=== PATIENT | female | born 1995 | race African-American/Black ===

== ENCOUNTER 2019-03-10 13:04 | Inpatient (IN) | payer OTHER, SELFPAY ==
[~2019-03-10] VITALS: Ht 180.3 cm; Wt 66.5 kg
[~2019-03-10 13:04] MED LIST: ACET500T15 PO; BACT800T5 PO; CEPH500C PO; CIPR-249 PO; FLAG500T PO; HYDR1CRE TOP; Implanon INJ; MACR100C43 PO; MYLICON PO; NO HOME MEDS; NYST100029 TOP; NYST1POW9 TOP; ROXI1TAB2 PO; TYLE325T5 PO
[2019-03-10 14:21] LABS: HEMATOCRIT 45.1 % (36.0-47.0); HEMOGLOBIN 14.5 g/dl (12.0-15.5); MEAN CORPUSCULAR HEMOGLOBIN 28.2 pg (27.0-33.0); MEAN CORPUSCULAR HGB CONC 32.2 g/dl (32.0-36.5); MEAN CORPUSCULAR VOLUME 87.6 fl (80.0-96.0); PLATELET COUNT, AUTOMATED 395 10^3/uL (150-450); RED BLOOD COUNT 5.15 10^6/uL (4.00-5.40); WHITE BLOOD COUNT 20.2 10^3/uL (4.0-10.0)
[2019-03-10 15:09] LABS: ACETAMINOPHEN LEVEL < 2.0 UG/ML (10.0-30.0); ALBUMIN 4.4 GM/DL (3.2-5.2); ALT/SGPT 27 U/L (12-78); BILIRUBIN,DIRECT 0.5 MG/DL (0.0-0.2); BILIRUBIN,TOTAL 0.9 MG/DL (0.2-1.0); BLOOD UREA NITROGEN 10 MG/DL (7-18); CALCIUM LEVEL 10.3 MG/DL (8.5-10.1); CARBON DIOXIDE LEVEL 26 MEQ/L (21-32); CHLORIDE LEVEL 105 MEQ/L (98-107); CREATININE FOR GFR 1.01 MG/DL (0.55-1.30); ETHYL ALCOHOL (ETHANOL) < 0.003 % (0.000-0.010); GLOMERULAR FILTRATION RATE > 60.0 (>60); GLUCOSE, FASTING 77 MG/DL (70-100); POTASSIUM SERUM 3.5 MEQ/L (3.5-5.1); SALICYLATE LEVEL < 1.7 MG/DL (5.0-30.0); SODIUM LEVEL 141 MEQ/L (136-145); TOTAL PROTEIN 8.6 GM/DL (6.4-8.2)
[2019-03-10] MEDS ORDERED: ALPRAZolam 0.5 MG TAB PO ONE (16:00)
[2019-03-10 16:09] LABS: HCG, SERUM QUALITATIVE NEGATIVE (NEGATIVE)
[2019-03-10] MEDS: diphenhydrAMINE 50 MG CAP PO ONE ×2 (17:30→21:27)
[2019-03-10 20:21] LABS: AMPHETAMINES LEVEL URINE NEGATIVE (NEGATIVE); BARBITURATES URINE NEGATIVE (NEGATIVE); BENZODIAZEPINES URINE POSITIVE (NEGATIVE); CANNABINOIDS URINE POSITIVE (NEGATIVE); COCAINE METABOLITE URINE NEGATIVE (NEGATIVE); METHADONE URINE NEGATIVE (NEGATIVE); OPIATES URINE NEGATIVE (NEGATIVE); PHENCYCLIDINE URINE NEGATIVE (NEGATIVE)
[2019-03-10] MEDS ORDERED: CIPROFLOXACIN 500 MG TAB PO ONE (20:45)
[2019-03-10] MEDS ORDERED: HALOPERIDOL 5 MG TAB PO STA (22:11)
[2019-03-10] MEDS ORDERED: LORazepam 1 MG TAB PO STA (22:11)
[2019-03-10] MEDS ORDERED: ZOLO50TA PO (22:14)
[2019-03-10] MEDS ORDERED: RISP0.5T3 PO (22:14)
[2019-03-10] MEDS ORDERED: VENTAER INH (22:14)
[2019-03-10] MEDS ORDERED: NEXP1IMP SC (22:14)
[2019-03-10] MEDS ORDERED: HYDR-3363 PO (22:14)
[2019-03-11 00:08] LABS: HEMATOCRIT 37.7 % (36.0-47.0); MEAN CORPUSCULAR HEMOGLOBIN 28.6 pg (27.0-33.0); MEAN CORPUSCULAR HGB CONC 32.6 g/dl (32.0-36.5); MEAN CORPUSCULAR VOLUME 87.7 fl (80.0-96.0); PLATELET COUNT, AUTOMATED 304 10^3/uL (150-450); WHITE BLOOD COUNT 10.6 10^3/uL (4.0-10.0)
[2019-03-11 00:11] LABS: HEMOGLOBIN 12.3 g/dl (12.0-15.5)
[2019-03-11] MEDS ORDERED: OLANZapine ORAL DISINTEGRATING TAB 5MG PO PRN (01:00)
[2019-03-11] MEDS ORDERED: ACETAMINOPHEN TAB 650MG DOSE (2X325MG) PO PRN (01:00)
[2019-03-11] MEDS ORDERED: MAALOX 30 ML SUSP *UDC PO PRN (01:00)
[2019-03-11] MEDS ORDERED: MOM 30ML SUSPENSION UDC PO PRN (01:00)
[2019-03-11] MEDS ORDERED: traZODone 50 MG TAB PO PRN (01:00)
[2019-03-11 03:11] VITALS: BP 101/62
[2019-03-11 06:39] VITALS: BP 109/72
[2019-03-11 07:13] LABS: HEMATOCRIT 38.9 % (36.0-47.0); HEMOGLOBIN 12.6 g/dl (12.0-15.5); MEAN CORPUSCULAR HEMOGLOBIN 28.6 pg (27.0-33.0); MEAN CORPUSCULAR HGB CONC 32.4 g/dl (32.0-36.5); MEAN CORPUSCULAR VOLUME 88.2 fl (80.0-96.0); PLATELET COUNT, AUTOMATED 311 10^3/uL (150-450); RED BLOOD COUNT 4.41 10^6/uL (4.00-5.40); WHITE BLOOD COUNT 9.5 10^3/uL (4.0-10.0)
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
[2019-03-11] MEDS ORDERED: PALIPERIDONE 3 MG ER TAB (INVEGA) PO SCH (09:00)
--- NOTE | 2019-03-11 13:06 | HPEPDOC ---
General Date of Admission Mar 11, 2019 at 00:54 Date of Service: Mar 11, 2019 Chief Complaint The patient is a 24-year-old female admitted with a reason for visit of Unspecified Psychotic D/O. Source: Patient History of Present Illness 24 year old pateint with asthma , migraines, depression, polysubstance abuse was admitted to [facility] for depression and unspecified psychotic disorder and i am seeing the patient for medical history and physical. She is sleepy this am and as per nurses has been sleeping all night and morning after polysubstance use prior to admission. She was easily arousable and cooperative. denied any complaints this morning. denied any headache,or sob, denied any dysuria. DOes say that her menstruation is very irregular and small in amounts. Home Medications Scheduled Etonogestrel (Nexplanon) 68 Mg Implant, 68 MG SC ASDIRECTED, (Reported) IMPLANTED IN 2018 Risperidone (Risperidone) 0.5 Mg Tablet, 0.5 MG PO QHS, (Reported) HAS NOT TAKEN IN 3 MONTHS Sertraline Hcl (Zoloft) 50 Mg Tablet, 100 MG PO DAILY, (Reported) HAS NOT TAKEN IN 3 MONTHS Scheduled PRN Albuterol Sulfate (Ventolin Hfa) 18 Gm Hfa.aer.ad, 2 PUFF INH QID PRN for SHORTNESS OF BREATH, (Reported) Hydroxyzine HCl (Hydroxyzine HCl) 25 Mg Tablet, 25 MG PO TID PRN for ANXIETY, (Reported) HAS NOT TAKEN IN 3 MONTHS Allergies Coded Allergies: diphenhydramine (Verified Adverse Reaction, Severe, panic attacks, 03/10/19) Past Medical History Medical History asthma migraines, biliary colic Family History Significant Family History: Cancer (grandfather), Diabetes (father) Social History * Smoker: Denies Alcohol: occationally Drugs: marijuana, other (bath salts, amphetamine) A-FIB/CHADSVASC A-FIB History Current/History of A-Fib/PAF?: No Review of Systems Constitutional: Denies: Chills, Fever, Night Sweats Eyes: Denies: Pain, Vision change ENT: Denies: Head Aches, Ear Pain, Dysphagia Skin: Denies: Rash, Lesions, Breakdown Pulmonary: Denies: Dyspnea, Cough Cardiovascular: Denies: Chest Pain, Palpitations, Orthopnea, Paroxysmal Noc. Dyspnea, Lt Headedness Gastrointestinal: Denies: Nausea, Vomiting, Abdominal Pain, Diarrhea Genitourinary: Denies: Dysuria, Frequency, Incontinence, Retention Hematologic: Denies: Bruising, Bleeding Excessively Musculoskeletal: Denies: Neck Pain, Back Pain, Joint Pain, Muscle Pain, Spasms Physical Examination General Exam: Positive: Alert, Cooperative, No Acute Distress Eye Exam: Positive: PERRLA, Conjunctiva & lids normal, EOMI; Negative: Sclera icteric ENT Exam: Positive: Atraumatic, Mucous membr. moist/pink, Pharynx Normal Neck Exam: Positive: Supple; Negative: JVD, thyromegaly Chest Exam: Positive: Clear to auscultation, Normal air movement Heart Exam: Positive: Rate Normal, Regular Rhythm, Normal S1, Normal S2; Negative: Murmurs, Rubs Abdomen Exam: Positive: Normal bowel sounds, Soft; Negative: Tenderness, Hepatospenomegaly Extremity Exam: Positive: Normal pulses; Negative: Clubbing, Cyanosis, Edema Vital Signs Vital Signs Date Time Temp Pulse Resp B/P (MAP) Pulse Ox O2 Delivery O2 Flow Rate FiO2 03/11/19 06:39 97.3 66 12 109/72 (84) Room Air 03/11/19 03:11 100 Laboratory Data Labs 24H Laboratory Tests 2 03/10/19 14:08: Nucleated Red Blood Cells % (auto) 0.0, Anion Gap 10, Glomerular Filtration Rate > 60.0, Calcium Level 10.3H, Total Bilirubin 0.9, Direct Bilirubin 0.5H, Aspartate Amino Transf (AST/SGOT) 33, Alanine Aminotransferase (ALT/SGPT) 27, Alkaline Phosphatase 89, Total Protein 8.6H, Albumin 4.4, Albumin/Globulin Ratio 1.05, Thyroid Stimulating Hormone (TSH) 2.150, Human Chorionic Gonadotropin, Qual NEGATIVE, Salicylates Level < 1.7L, Acetaminophen Level < 2.0L, Ethyl Alcohol Level < 0.003 03/10/19 19:36: Urine Color DK YELLOW, Urine Appearance CLOUDYH, Urine pH 6.0, Urine Specific [place] 1.024, Urine Protein 2+H, Urine Glucose (UA) NEGATIVE, Urine Ketones 1+H, Urine Blood 1+H, Urine Nitrite NEGATIVE, Urine Bilirubin 1+H, Urine Urobilinogen 4.0H, Urine Leukocyte Esterase 2+H, Urine WBC (Auto) 30H, Urine RBC (Auto) 1, Urine Hyaline Casts (Auto) 27, Urine Bacteria (Auto) 3+H, Urine Squamous Epithelial Cells 5, Urine Mucus (Auto) LARGE, Urine Sperm (Auto) , Urine Opiates Screen NEGATIVE, Urine Methadone Screen NEGATIVE, Urine Barbiturates Screen NEGATIVE, Urine Phencyclidine Screen NEGATIVE, Urine Amphetamines Screen NEGATIVE, Urine Benzodiazepines Screen POSITIVEH, Urine [place]ha eldon Metabolite Screen NEGATIVE, Urine Cannabinoids Screen POSITIVEH 03/10/19 23:48: Nucleated Red Blood Cells % (auto) 0.0 03/11/19 06:54: Total Creatine Kinase 353H 03/11/19 06:57: Nucleated Red Blood Cells % (auto) 0.0 CBC/BMP Laboratory Tests 03/10/19 14:08 03/10/19 23:48 03/11/19 06:57 Microbiology Microbiology 03/10/19 Urine Culture, Received Pending Assessment/Plan 24 year old patient with asthma , migraines, depression, polysubstance abuse was admitted to [facility] for depression and unspecified psychotic disorder and i am seeing the patient for medical history and physical. Dirty UA patient denies any complaints of dysuria follow up urine culture possibly asymptomatic bacturia. Leucocytosis this was probably related to stress demargination and mild dehydration No fever or chills of any symptom or sign of infection it is normal this am Hypercalcemia probably due to mild dehydration At present patient does not have any active medical issues so will sign off If needed please reconsult . Plan / VTE VTE Prophylaxis Ordered?: No (freely ambulatory) AKILAH MOORE MD Mar 11, 2019 13:06
[2019-03-11 18:00] VITALS: BP 131/86
[2019-03-11] MEDS ORDERED: SERTRALINE 100 MG TAB PO ONE (18:45)
[2019-03-11] MEDS ORDERED: ALBUTEROL 90 MCG/ACT 8GM HFA INHALER INH PRN (18:45)
[2019-03-11] MEDS: risperiDONE 0.5 MG TAB PO SCH (22:44)
[2019-03-12 07:32] VITALS: BP 122/71
[2019-03-12] MEDS: SERTRALINE 100 MG TAB PO SCH (08:42)
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
[2019-03-12] MEDS: CEFDINIR 300 MG CAP (OMNICEF) PO SCH ×2 (11:11→20:29)
[2019-03-12 18:00] VITALS: BP 123/77
[2019-03-12] MEDS: risperiDONE 0.5 MG TAB PO SCH (20:29)
[2019-03-13 06:25] VITALS: BP 126/62
[2019-03-13] MEDS: CEFDINIR 300 MG CAP (OMNICEF) PO SCH ×2 (08:06→20:05)
[2019-03-13] MEDS: SERTRALINE 100 MG TAB PO SCH (08:06)
[2019-03-13] MEDS: hydrOXYzine 25 MG TAB PO PRN ×2 (11:56→21:38)
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
[2019-03-13 15:22] VITALS: BP 127/65
[2019-03-13] MEDS: risperiDONE 0.5 MG TAB PO SCH (20:05)
[2019-03-14 06:31] VITALS: BP 105/54
[2019-03-14] MEDS: CEFDINIR 300 MG CAP (OMNICEF) PO SCH (07:57)
[2019-03-14] MEDS: SERTRALINE 100 MG TAB PO SCH (07:57)
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
[2019-03-14] MEDS ORDERED: RISP0.5T3 PO (10:23)
[2019-03-14] MEDS ORDERED: ZOLO50TA PO (10:23)
== END 2019-03-14 12:02 | disposition home or self-care (01) | DRG 751 ==
LOC: M ED 13:04 → M ED INP 03-11 00:54 → M PSY 03-11 02:34
PROVIDERS: ADMIT Psychiatry & Neurology Psychiatry; ATTEND Psychiatry & Neurology Addiction Medicine
DX: F29 Unspecified psychosis not due to a substance or known physiological condition (principal); F12.20 Cannabis dependence, uncomplicated; F17.210 Nicotine dependence, cigarettes, uncomplicated; F32.9 Major depressive disorder, single episode, unspecified; G43.909 Migraine, unspecified, not intractable, without status migrainosus; J45.909 Unspecified asthma, uncomplicated; F15.10 Other stimulant abuse, uncomplicated; F19.20 Other psychoactive substance dependence, uncomplicated; D72.829 Elevated white blood cell count, unspecified; E83.52 Hypercalcemia; Z60.8 Other problems related to social environment; Z88.8 Allergy status to other drugs, medicaments and biological substances; Z79.899 Other long term (current) drug therapy

== ENCOUNTER → 2019-03-21 | Outpatient (REF) | payer OTHER ==
[~2019-03-21] MED LIST changes: +HYDR-3363 PO; +NEXP1IMP SC; +RISP0.5T3 PO; +VENTAER INH; +ZOLO50TA PO
[2019-03-21 17:17] LABS: BASO # 0.1 10^3/uL (0.0-0.2); BASO % 0.6 % (0.0-1.0); EOS # 0.4 10^3/uL (0.0-0.5); HEMATOCRIT 43.7 % (36.0-47.0); HEMOGLOBIN 13.6 g/dl (12.0-15.5); LYMPH # 2.9 10^3/uL (1.5-5.0); LYMPH % 21.4 % (24.0-44.0); MEAN CORPUSCULAR HEMOGLOBIN 28.6 pg (27.0-33.0); MEAN CORPUSCULAR HGB CONC 31.1 g/dl (32.0-36.5); MEAN CORPUSCULAR VOLUME 91.8 fl (80.0-96.0); MONO # 1.2 10^3/uL (0.0-0.8); MONO % 8.6 % (0.0-5.0); NEUTROPHILS % 65.7 % (36.0-66.0); PLATELET COUNT, AUTOMATED 380 10^3/uL (150-450); RED BLOOD COUNT 4.76 10^6/uL (4.00-5.40); WHITE BLOOD COUNT 13.7 10^3/uL (4.0-10.0)
== END ==
LOC: M SFHCADAM 14:41
PROVIDERS: ATTEND Family Medicine
DX: Z86.2 Personal history of diseases of the blood and blood-forming organs and certain disorders involving the immune mechanism (principal)

== ENCOUNTER → 2019-07-19 | Outpatient (CLI) | payer OTHER | LOC: M OUTALCOH 07:57 | PROVIDERS: ATTEND Psychiatry & Neurology Addiction Medicine | DX: Z03.89 Encounter for observation for other suspected diseases and conditions ruled out (principal) ==

== ENCOUNTER 2019-07-29 14:08 | Outpatient (RCR) | payer OTHER | END 2019-08-02 | LOC: M OUTALCOH 14:08 | PROVIDERS: ATTEND Psychiatry & Neurology Addiction Medicine | DX: F12.20 Cannabis dependence, uncomplicated (principal) ==

== ENCOUNTER 2019-08-16 10:00 | Outpatient (RCR) | payer OTHER | END 2019-09-01 | LOC: M OUTALCOH 10:00 | PROVIDERS: ATTEND Psychiatry & Neurology Addiction Medicine | DX: F12.20 Cannabis dependence, uncomplicated (principal) ==

== ENCOUNTER 2019-09-13 19:26 | Emergency (ER) | payer OTHER ==
[~2019-09-13] VITALS: Ht 177.8 cm; Wt 68.2 kg
[2019-09-13 19:32] VITALS: BP 124/76
[2019-09-13 20:00] LABS: HEMATOCRIT 41.6 % (36.0-47.0); HEMOGLOBIN 13.7 g/dl (12.0-15.5); MEAN CORPUSCULAR HGB CONC 32.9 g/dl (32.0-36.5); MEAN CORPUSCULAR VOLUME 87.9 fl (80.0-96.0); PLATELET COUNT, AUTOMATED 274 10^3/uL (150-450); RED BLOOD COUNT 4.73 10^6/uL (4.00-5.40); WHITE BLOOD COUNT 12.1 10^3/uL (4.0-10.0)
[2019-09-13] MEDS ORDERED: ACYC1CAP20 PO (20:01)
[2019-09-13 20:35] LABS: ACETAMINOPHEN LEVEL < 2.0 UG/ML (10.0-30.0); ALBUMIN 4.4 GM/DL (3.2-5.2); ALT/SGPT 25 U/L (12-78); BILIRUBIN,DIRECT 0.2 MG/DL (0.0-0.2); BILIRUBIN,TOTAL 1.2 MG/DL (0.2-1.0); BLOOD UREA NITROGEN 15 MG/DL (7-18); CALCIUM LEVEL 8.8 MG/DL (8.5-10.1); CARBON DIOXIDE LEVEL 26 MEQ/L (21-32); CHLORIDE LEVEL 106 MEQ/L (98-107); CREATININE FOR GFR 0.92 MG/DL (0.55-1.30); ETHYL ALCOHOL (ETHANOL) < 0.003 % (0.000-0.010); GLOMERULAR FILTRATION RATE > 60.0 (>60); GLUCOSE, FASTING 83 MG/DL (70-100); POTASSIUM SERUM 3.2 MEQ/L (3.5-5.1); SALICYLATE LEVEL < 1.7 MG/DL (5.0-30.0); SODIUM LEVEL 140 MEQ/L (136-145); THYROID STIMULATING HORMONE 0.947 uIU/ML (0.358-3.740); TOTAL PROTEIN 8.3 GM/DL (6.4-8.2)
[2019-09-13 20:41] LABS: HCG, SERUM QUALITATIVE NEGATIVE (NEGATIVE)
[2019-09-13 20:57] LABS: AMPHETAMINES LEVEL URINE NEGATIVE (NEGATIVE); BARBITURATES URINE NEGATIVE (NEGATIVE); BENZODIAZEPINES URINE NEGATIVE (NEGATIVE); CANNABINOIDS URINE POSITIVE (NEGATIVE); COCAINE METABOLITE URINE NEGATIVE (NEGATIVE); METHADONE URINE NEGATIVE (NEGATIVE); OPIATES URINE NEGATIVE (NEGATIVE); PHENCYCLIDINE URINE NEGATIVE (NEGATIVE)
[2019-09-13] MEDS ORDERED: RISP0.5T21 PO (22:35)
[2019-09-13] MEDS ORDERED: ACYC400T PO (22:35)
[2019-09-13] MEDS ORDERED: POTASSIUM CHLORIDE 10 MEQ SR TABLET PO ONE (23:00)
--- NOTE | 2019-09-14 08:43 | ECGEPIP ---
[facility] - ED Test Date: 2019-09-13 Pat Name: TAMARA KITCHEN Department: Room: - Gender: Female [facility] Associate: : 1995 Requested By: CLARISSA Fowler Order Number: [id number] Reading MD: Franck Neal Measurements Intervals [place] Rate: 57 P: 21 [place]: 111 QRS: 64 QRSD: 80 T: 50 QT: 440 QTc: 432 Interpretive Statements SINUS BRADYCARDIA WITH SHORT [place] INTERVAL POSSIBLE INCOMPLETE RIGHT BUNDLE BRANCH BLOCK SIMILAR TO 04/23/14 Electronically Signed on 09-14-2019 8:43:14 EDT by Franck Neal
== END 2019-09-14 01:39 ==
LOC: M ED 19:26
DX: T54.92XA Toxic effect of unspecified corrosive substance, intentional self-harm, initial encounter (principal); R00.1 Bradycardia, unspecified; Z91.5 Personal history of self-harm; F32.9 Major depressive disorder, single episode, unspecified; R45.851 Suicidal ideations; Z88.8 Allergy status to other drugs, medicaments and biological substances; Z79.899 Other long term (current) drug therapy; F12.10 Cannabis abuse, uncomplicated; Z11.59 Encounter for screening for other viral diseases
CPT/HCPCS: 36415; 80048; 80076; 80307; 84443; 84703; 85027; 93005; 99285; G0480; U0002

== ENCOUNTER 2019-10-13 11:16 | Inpatient (IN) | payer OTHER ==
[~2019-10-13] VITALS: Ht 177.8 cm; Wt 76.6 kg
[~2019-10-13 11:16] MED LIST changes: +ACYC1CAP20 PO; +ACYC400T PO; +RISP0.5T21 PO
[2019-10-13] MEDS ORDERED: HYDR-3363 (11:24)
[2019-10-13] MEDS ORDERED: ZOLO50TA PO (11:24)
[2019-10-13] MEDS ORDERED: RISP0.5T3 PO (11:24)
[2019-10-13 11:58] LABS: HEMATOCRIT 39.1 % (36.0-47.0); HEMOGLOBIN 12.9 g/dl (12.0-15.5); MEAN CORPUSCULAR HEMOGLOBIN 29.1 pg (27.0-33.0); MEAN CORPUSCULAR VOLUME 88.1 fl (80.0-96.0); PLATELET COUNT, AUTOMATED 237 10^3/uL (150-450); RED BLOOD COUNT 4.44 10^6/uL (4.00-5.40); WHITE BLOOD COUNT 12.1 10^3/uL (4.0-10.0)
[2019-10-13 12:35] LABS: ACETAMINOPHEN LEVEL < 2.0 UG/ML (10.0-30.0); ALT/SGPT 20 U/L (12-78); BILIRUBIN,DIRECT 0.1 MG/DL (0.0-0.2); BILIRUBIN,TOTAL 0.4 MG/DL (0.2-1.0); BLOOD UREA NITROGEN 9 MG/DL (7-18); CALCIUM LEVEL 8.8 MG/DL (8.5-10.1); CARBON DIOXIDE LEVEL 26 MEQ/L (21-32); CHLORIDE LEVEL 108 MEQ/L (98-107); CREATININE FOR GFR 0.73 MG/DL (0.55-1.30); ETHYL ALCOHOL (ETHANOL) < 0.003 % (0.000-0.010); GLOMERULAR FILTRATION RATE > 60.0 (>60); GLUCOSE, FASTING 100 MG/DL (70-100); POTASSIUM SERUM 3.8 MEQ/L (3.5-5.1); SALICYLATE LEVEL < 1.7 MG/DL (5.0-30.0); SODIUM LEVEL 140 MEQ/L (136-145); TOTAL PROTEIN 7.4 GM/DL (6.4-8.2)
[2019-10-13 12:48] LABS: HCG, SERUM QUALITATIVE NEGATIVE (NEGATIVE)
[2019-10-13 13:03] LABS: AMPHETAMINES LEVEL URINE NEGATIVE (NEGATIVE); BARBITURATES URINE NEGATIVE (NEGATIVE); BENZODIAZEPINES URINE NEGATIVE (NEGATIVE); CANNABINOIDS URINE POSITIVE (NEGATIVE); COCAINE METABOLITE URINE NEGATIVE (NEGATIVE); METHADONE URINE NEGATIVE (NEGATIVE); OPIATES URINE NEGATIVE (NEGATIVE); PHENCYCLIDINE URINE NEGATIVE (NEGATIVE)
[2019-10-13] MEDS ORDERED: HYDR-3363 PO (18:28)
[2019-10-13] MEDS ORDERED: MAALOX 30 ML SUSP *UDC PO PRN (18:45)
[2019-10-13] MEDS ORDERED: OLANZapine ORAL DISINTEGRATING TAB 5MG PO PRN (18:45)
[2019-10-13] MEDS ORDERED: ACETAMINOPHEN TAB 650MG DOSE (2X325MG) PO PRN (18:45)
[2019-10-13 21:20] VITALS: BP 139/69
[2019-10-13] MEDS: traZODone 50 MG TAB PO PRN (22:51)
[2019-10-13] MEDS: MOM 30ML SUSPENSION UDC PO PRN (22:51)
[2019-10-14 06:54] VITALS: BP 132/63
[2019-10-14] MEDS ORDERED: SERTRALINE HCL 50 MG TAB PO SCH (09:00)
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
[2019-10-14] MEDS ORDERED: hydrOXYzine 25 MG TAB PO PRN (11:30)
--- NOTE | 2019-10-14 12:06 | HPEPDOC ---
General Date of Admission Oct 13, 2019 at 18:35 Date of Service: Oct 14, 2019 Chief Complaint The patient is a 24-year-old female admitted with a reason for visit of Unspecified Mood Disorder. Source: Patient Exam Limitations: No limitations Timing/Duration: Other (few days) Severity: Other (, not applicable) Associated Symptoms: Other (suicidal thoughts) History of Present Illness This is a 23 years old -Serbian female with past medical history of asthma, migraines, depression, polysubstance abuse, presented to ED with 2-3 days of suicidal thoughts and patient has been admitted to inpatient mental health unit for further care. Patient denies any medical problems such as chest pain, shortness of breath, nausea, vomiting, diarrhea. Home Medications Scheduled Etonogestrel (Nexplanon) 68 Mg Implant, 68 MG SC ASDIRECTED, (Reported) IMPLANTED IN 2018 Risperidone (Risperidone) 0.5 Mg Tablet, 0.5 MG PO QHS, (Reported) Sertraline Hcl (Zoloft) 50 Mg Tablet, 100 MG PO DAILY, (Reported) Scheduled PRN Hydroxyzine HCl (Hydroxyzine HCl) 25 Mg Tablet, 25 MG PO TID PRN for ANXIETY, (Reported) Allergies Coded Allergies: diphenhydramine (Verified Adverse Reaction, Severe, panic attacks, 09/13/19) Past Medical History Medical History Asthma, migraines, depression, polysubstance abuse, biliary colic Surgical History None Family History Family history reviewed grandfather had cancer and father had diabetes Social History * Smoker: Denies Alcohol: occationally Drugs: marijuana A-FIB/CHADSVASC A-FIB History Current/History of A-Fib/PAF?: No Review of Systems Constitutional: Denies: Chills, Fever, Malaise, Night Sweats, Weakness, Fatigue, Weight Loss, Lethargy, Other Eyes: Denies: Pain, Vision change, Conjunctivae inflammation, Eyelid inflammation, Redness, Other ENT: Denies: Head Aches, Ear Pain, Dysphagia, Sinus Congestion, Post Nasal Drip, Sore Throat, Epistaxis, Other Symptoms Skin: Denies: Rash, Lesions, Jaundice, Bruising, Itching, Dry, Breakdown, Nail Changes, Other Pulmonary: Denies: Dyspnea, Cough, Pleuritic Chest Pain, Other Symptoms Cardiovascular: Denies: Chest Pain, Palpitations, Orthopnea, Paroxysmal Noc. Dyspnea, Edema, Lt Headedness, Other Symptoms Gastrointestinal: Denies: Nausea, Vomiting, Abdominal Pain, Diarrhea, Constipation, Melena, Hematochezia, Other Symptoms Genitourinary: Denies: Dysuria, Frequency, Incontinence, Hematuria, Retention, Other Symptoms Hematologic: Denies: Bruising, Bleeding Excessively, Petecchia, Purpura, Enlarged Lymph Nodes, Other Hematologic Endocrine: Denies: Polydipsia, Polyphagia, Polyuria, Heat Intolerance, Cold Intolerance, Other Endocrine Sx Musculoskeletal: Denies: Neck Pain, Back Pain, Shoulder Pain, Arm Pain, Hand Pain, Leg Pain, Foot Pain, Joint Pain, Muscle Pain, Spasms, Other Symptoms Neurological: Denies: Weakness, Numbness, Incoordination, Change in speech, Confusion, Seizures, Other Symptoms Physical Examination General Exam: Positive: Alert, Cooperative Eye Exam: Positive: PERRLA, Conjunctiva & lids normal ENT Exam: Positive: Atraumatic, Mucous membr. moist/pink Neck Exam: Positive: Supple Chest Exam: Positive: Clear to auscultation, Normal air movement Heart Exam: Positive: Rate Normal, Normal S1, Normal S2 Abdomen Exam: Positive: Normal bowel sounds, Soft Extremity Exam: Positive: Normal pulses Skin Exam: Positive: Nl turgor and temperature Neuro Exam: Positive: Strength at 5/5 X4 ext, Cranial Nerves 3-12 NL Psych Exam: Positive: Mood NL, Oriented x 3 Vital Signs Vital Signs Date Time Temp Pulse Resp B/P (MAP) Pulse Ox O2 Delivery O2 Flow Rate FiO2 10/14/19 06:54 97.9 69 12 132/63 (86) 100 Room Air Laboratory Data Labs 24H Laboratory Tests 2 10/13/19 12:04: Urine Opiates Screen NEGATIVE, Urine Methadone Screen NEGATIVE, Urine Barbiturates Screen NEGATIVE, Urine Phencyclidine Screen NEGATIVE, Urine Amphetamines Screen NEGATIVE, Urine Benzodiazepines Screen NEGATIVE, Urine Cocaine Metabolite Screen NEGATIVE, Urine Cannabinoids Screen POSITIVEH Problems (1) Suicidal ideation Status: Acute Problem Text: Patient has been admitted to inpatient mental health unit for further care Individual and group counseling, as per psychiatry Pharmaceutical intervention as per psychiatry No active medical issues are condition at the present time. Please call as needed (2) Depressive disorder, not elsewhere classified Status: Chronic Problem Text: As per psychiatry (3) Cannabis abuse Status: Chronic (4) Migraines Status: Chronic Problem Text: History of migraines but patient is asymptomatic at the present time Plan / VTE VTE Prophylaxis Ordered?: Yes APOLINAR BAPTISTE MD Oct 14, 2019 12:06
[2019-10-14 17:14] VITALS: BP 119/69
[2019-10-14] MEDS: traZODone 50 MG TAB PO PRN (20:39)
[2019-10-14] MEDS: risperiDONE 0.5 MG TAB PO SCH (20:39)
[2019-10-14] MEDS: MOM 30ML SUSPENSION UDC PO PRN (23:31)
[2019-10-15 06:19] VITALS: BP 112/68
[2019-10-15] MEDS: SERTRALINE 100 MG TAB PO SCH (08:09)
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
[2019-10-15 16:15] VITALS: BP 117/70
[2019-10-15] MEDS: risperiDONE 0.5 MG TAB PO SCH (20:29)
[2019-10-15] MEDS: traZODone 50 MG TAB PO PRN (22:25)
[2019-10-16 06:24] VITALS: BP 138/65
[2019-10-16] MEDS: SERTRALINE 100 MG TAB PO SCH (08:06)
[2019-10-16] MEDS: MOM 30ML SUSPENSION UDC PO PRN (10:18)
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
[2019-10-16] MEDS ORDERED: BENZTROPINE 0.5 MG TAB PO PRN (13:45)
[2019-10-16 16:18] VITALS: BP 120/60
[2019-10-16] MEDS: risperiDONE 0.5 MG TAB PO SCH (20:58)
[2019-10-16] MEDS: traZODone 50 MG TAB PO PRN (22:57)
[2019-10-17 06:37] VITALS: BP 147/81
[2019-10-17] MEDS: SERTRALINE 100 MG TAB PO SCH (09:36)
--- NOTE | 2019-10-17 10:18 | MHDSPDOC ---
[facility] Discharge Summary Discharge Summary DATE OF ADMISSION: Oct 13, 2019 at 18:35 DATE OF DISCHARGE: Oct 17, 2019 at 15:06 DISCHARGE DIAGNOSES: See Problem list below REASON FOR ADMISSION: 24-year-old woman admitted for SI due to depression after stopping her medications and using various substances CONSULTANTS INVOLVED:[ None (basic hospitalist screening)] TREATMENT AND PROGRESS ON THE UNIT : Medication changes: resumed on previously effective sertraline and risperidone, with positive effects Behavior on unit: friendly, initially unengaged but became more engaged Treatment attendance: as above Notable issues on presentation: none State on discharge: [improved] DISCHARGE ASSESSMENT: The patient a 24 year old woman, with likely depression and substance use, presented to [facility], where they started on previously effective medications and make strong progress. Legal status considerations: The patient at the time of discharge did not meet criteria for involuntary admission/extension due to having a [normal] mental status exam, [fair] insight into the situation, They are engaged in the discharge process, as well as being friendly and amenable in behavioral control and havent been engaging in any observed concerning behavior or ideation recently. They decline voluntary extension/admission at this time and must be discharged in good dave, as Im unable to make a case for holding the patient against their will. They may have historical risk factors of admissions and other interactions with psychiatry however, those are not modifiable from a clinical perspective. The patient will need to be discharged in good dave. MENTAL STATUS EXAMINATION ON DISCHARGE: [General: Well dressed with good hygiene Speech: Spontaneous and fluid Thought processes: Linear and logical Thought content: Future orientated Abstract reasoning, and computation: Intact Description of associations: Intact Description of abnormal or psychotic thoughts:Denies any suicidal or homicidal ideation. Denies any auditory or visual hallucinations. Does not appear to be responding to internal stimuli. Does not appear to be endorsing any bizarre or paranoid ideation. Judgment: fair Insight: fair Orientation: Alert and orientated 3 Recent and remote memory: Intact Attention span and concentration: Intact Fund of knowledge: Adequate Mood: "okay" Affect: Euthymic with a full range] PLAN/FOLLOWUP ARRANGEMENTS: Follow up appointments made (PCP and MH in 5 days of D/C date) and safety plan completed. Safety Planning aspects completed prior to discharge [SAFE ACT reported on initial invol admission in ER] [Medication supplies limited to 7 days with 4 refills to prevent accumulation to OD] [Family contact completed, educated on safe practices, instructed on removal and mitigation of dangerous means] [RN reviewed crisis hotline information and other aspects to empower patient to access care in interim before next appointment.] The amount of time spent in the coordination of care for this patient was approximately 30 minutes. Vital Signs/I&Os Vital Signs Date Time Temp Pulse Resp B/P (MAP) Pulse Ox O2 Delivery O2 Flow Rate FiO2 10/17/19 06:37 97.6 63 12 147/81 (103) 100 Room Air Medications Scheduled Etonogestrel (Nexplanon) 68 Mg Implant, 68 MG SC ASDIRECTED, (Reported) IMPLANTED IN 2018 Risperidone (Risperidone) 0.5 Mg Tablet, 0.5 MG PO QHS for mood for 7 Days, #7 Sertraline Hcl (Zoloft) 50 Mg Tablet, 100 MG PO DAILY for mood for 7 Days, #14 Scheduled PRN Benztropine Mesylate (Benztropine Mesylate) 0.5 Mg Tablet, 0.5 MG PO DAILY PRN for EPS for 7 Days, #7 Allergies Coded Allergies: diphenhydramine (Verified Adverse Reaction, Severe, panic attacks, 09/01 06/23) Problems (1) Depressive disorder, not elsewhere classified Status: Chronic Response to Treatment: Stable (2) Suicidal ideation Status: Resolved (3) Cannabis abuse Status: Chronic Plan / VTE VTE Prophylaxis Ordered?: HEIDE Polanco DO Oct 17, 2019 10:18
[2019-10-17] MEDS ORDERED: RISP0.5T3 PO (11:06)
[2019-10-17] MEDS ORDERED: ZOLO50TA PO (11:06)
[2019-10-17] MEDS ORDERED: BENZ0.5T23 PO (11:07)
== END 2019-10-17 15:06 | disposition home or self-care (01) | DRG 754 ==
LOC: M ED 11:16 → M ED INP 18:35 → M PSY 21:00
PROVIDERS: ADMIT Psychiatry & Neurology Addiction Medicine; ATTEND Psychiatry & Neurology Addiction Medicine
DX: F32.9 Major depressive disorder, single episode, unspecified (principal); F12.10 Cannabis abuse, uncomplicated; R45.851 Suicidal ideations; Z79.899 Other long term (current) drug therapy; Z88.8 Allergy status to other drugs, medicaments and biological substances; J45.909 Unspecified asthma, uncomplicated; G43.709 Chronic migraine without aura, not intractable, without status migrainosus; Z63.0 Problems in relationship with spouse or partner

== ENCOUNTER → 2019-11-29 | Outpatient (CLI) | payer OTHER ==
[~2019-11-29] MED LIST changes: +BENZ0.5T23 PO; +HYDR-3363
== END ==
LOC: M OUTALCOH 08:00
PROVIDERS: ATTEND Psychiatry & Neurology Addiction Medicine
DX: F12.20 Cannabis dependence, uncomplicated (principal)

== ENCOUNTER → 2019-12-12 | Outpatient (REF) | payer OTHER | LOC: M SFHCPLAZ 11:00 | PROVIDERS: ATTEND Family Medicine | DX: N30.90 Cystitis, unspecified without hematuria (principal) ==

== ENCOUNTER 2019-12-27 16:00 | Outpatient (RCR) | payer OTHER | END 2020-01-02 | LOC: M OUTALCOH 16:00 | PROVIDERS: ATTEND Psychiatry & Neurology Addiction Medicine | DX: F12.20 Cannabis dependence, uncomplicated (principal) ==

== ENCOUNTER 2020-01-31 16:00 | Outpatient (RCR) | payer OTHER | END 2020-02-01 | LOC: M OUTALCOH 16:00 | PROVIDERS: ATTEND Psychiatry & Neurology Addiction Medicine | DX: F12.20 Cannabis dependence, uncomplicated (principal) ==

== ENCOUNTER 2020-03-02 13:00 | Outpatient (RCR) | payer OTHER | END 2020-03-03 | LOC: M OUTALCOH 13:00 | PROVIDERS: ATTEND Psychiatry & Neurology Addiction Medicine | DX: F12.20 Cannabis dependence, uncomplicated (principal) ==

== ENCOUNTER 2020-03-28 13:27 | Outpatient (RCR) | payer OTHER ==
[~2020-03-28 13:27] MED LIST changes: +RISP-7 PO; -RISP0.5T3 PO
== END 2020-04-02 ==
LOC: M OUTALCOH 13:27
PROVIDERS: ATTEND Psychiatry & Neurology Addiction Medicine
DX: F12.20 Cannabis dependence, uncomplicated (principal)

== ENCOUNTER 2020-05-01 11:00 | Outpatient (RCR) | payer OTHER | END 2020-05-03 | LOC: M OUTALCOH 11:00 | PROVIDERS: ATTEND Psychiatry & Neurology Addiction Medicine | DX: F12.20 Cannabis dependence, uncomplicated (principal) ==

== ENCOUNTER 2020-06-01 14:35 | Outpatient (RCR) | payer OTHER | END 2020-06-03 | LOC: M OUTALCOH 14:35 | PROVIDERS: ATTEND Psychiatry & Neurology Addiction Medicine | DX: F12.20 Cannabis dependence, uncomplicated (principal) ==

== ENCOUNTER → 2020-06-26 | Outpatient (REF) | payer OTHER | LOC: M SFHCADAM 14:49 | PROVIDERS: ATTEND Physician Assistant | DX: N30.01 Acute cystitis with hematuria (principal) ==

== ENCOUNTER 2020-06-27 14:00 | Outpatient (RCR) | payer OTHER | END 2020-07-01 | LOC: M OUTALCOH 14:00 | PROVIDERS: ATTEND Psychiatry & Neurology Psychiatry | DX: F12.20 Cannabis dependence, uncomplicated (principal) ==

== ENCOUNTER → 2020-08-01 | Outpatient (RCR) | payer OTHER | LOC: M OUTALCOH 07-04 14:00 | PROVIDERS: ATTEND Psychiatry & Neurology Addiction Medicine | DX: F12.20 Cannabis dependence, uncomplicated (principal) ==

== ENCOUNTER → 2020-08-31 | Outpatient (RCR) | payer OTHER ==
[~2020-08-31] MED LIST changes: +ACYC1TAB PO; -ACYC400T PO
== END ==
LOC: M OUTALCOH 08-02 13:00
PROVIDERS: ATTEND Psychiatry & Neurology Addiction Medicine
DX: F12.20 Cannabis dependence, uncomplicated (principal)

== ENCOUNTER 2020-09-02 23:33 | Emergency (ER) | payer OTHER ==
[2020-09-03 00:03] VITALS: BP 121/67
[2020-09-03] MEDS ORDERED: hydrOXYzine 25 MG TAB PO STA (00:11)
[2020-09-03] MEDS ORDERED: risperiDONE 0.5 MG TAB PO ONE (00:15)
[2020-09-03 00:28] LABS: HEMATOCRIT 43.5 % (36.0-47.0); HEMOGLOBIN 14.3 g/dl (12.0-15.5); MEAN CORPUSCULAR HGB CONC 32.9 g/dl (32.0-36.5); MEAN CORPUSCULAR VOLUME 85.3 fl (80.0-96.0); PLATELET COUNT, AUTOMATED 323 10^3/uL (150-450); WHITE BLOOD COUNT 21.4 10^3/uL (4.0-10.0)
[2020-09-03 01:09] LABS: RSV AMPLIFICATION NEGATIVE (NEGATIVE)
[2020-09-03 01:09] LABS: ACETAMINOPHEN LEVEL < 2.0 UG/ML (10.0-30.0); ALBUMIN 5.1 GM/DL (3.2-5.2); ALT/SGPT 19 U/L (12-78); BILIRUBIN,DIRECT 0.1 MG/DL (0.0-0.2); BILIRUBIN,TOTAL 0.3 MG/DL (0.2-1.0); BLOOD UREA NITROGEN 10 MG/DL (7-18); CALCIUM LEVEL 10.2 MG/DL (8.5-10.1); CARBON DIOXIDE LEVEL 27 MEQ/L (21-32); CHLORIDE LEVEL 104 MEQ/L (98-107); CREATININE FOR GFR 0.95 MG/DL (0.55-1.30); ETHYL ALCOHOL (ETHANOL) < 0.003 % (0.000-0.010); GLOMERULAR FILTRATION RATE > 60.0 (>60); GLUCOSE, FASTING 90 MG/DL (70-100); POTASSIUM SERUM 3.4 MEQ/L (3.5-5.1); SALICYLATE LEVEL < 1.7 MG/DL (5.0-30.0); SODIUM LEVEL 139 MEQ/L (136-145); TOTAL PROTEIN 9.3 GM/DL (6.4-8.2)
[2020-09-03 01:15] LABS: AMPHETAMINES LEVEL URINE NEGATIVE (NEGATIVE); BARBITURATES URINE NEGATIVE (NEGATIVE); BENZODIAZEPINES URINE NEGATIVE (NEGATIVE); CANNABINOIDS URINE POSITIVE (NEGATIVE); COCAINE METABOLITE URINE NEGATIVE (NEGATIVE); METHADONE URINE NEGATIVE (NEGATIVE); OPIATES URINE NEGATIVE (NEGATIVE); PHENCYCLIDINE URINE NEGATIVE (NEGATIVE)
[2020-09-03 01:43] LABS: HCG, SERUM QUALITATIVE NEGATIVE (NEGATIVE)
--- NOTE | 2020-09-03 06:19 | ECGEPIP ---
[facility] - ED Test Date: 2020-09-02 Pat Name: TAMARA KITCHEN Department: Room: - Gender: Female [employer]: MAMADOU : 1995 Requested By: Lincoln Stephens Order Number: [id number] Reading MD: Nayeli Todd Measurements Intervals [place] Rate: 77 P: 48 TN: 152 QRS: 58 QRSD: 80 T: 40 QT: 408 QTc: 461 Interpretive Statements Normal sinus rhythm Nonspecific ST T wave changes cw 09/13/[address] T wave changes Electronically Signed on 09-03-2020 6:19:32 EDT by Nayeli Todd
== END 2020-09-03 02:32 | disposition home or self-care (01) ==
LOC: M ED 23:33
DX: F43.0 Acute stress reaction (principal); D72.829 Elevated white blood cell count, unspecified; J45.909 Unspecified asthma, uncomplicated; F33.9 Major depressive disorder, recurrent, unspecified; G43.909 Migraine, unspecified, not intractable, without status migrainosus; R56.9 Unspecified convulsions; Z88.8 Allergy status to other drugs, medicaments and biological substances; Z79.899 Other long term (current) drug therapy; Z79.3 Long term (current) use of hormonal contraceptives; F12.20 Cannabis dependence, uncomplicated; F15.20 Other stimulant dependence, uncomplicated

== ENCOUNTER 2020-09-28 14:21 | Outpatient (RCR) | payer OTHER | END 2020-10-01 | LOC: M OUTALCOH 14:21 | PROVIDERS: ATTEND Psychiatry & Neurology Psychiatry | DX: F12.20 Cannabis dependence, uncomplicated (principal) ==

== ENCOUNTER 2020-10-29 14:00 | Outpatient (RCR) | payer OTHER | END 2020-10-31 | LOC: M OUTALCOH 14:00 | PROVIDERS: ATTEND Psychiatry & Neurology Psychiatry | DX: F12.20 Cannabis dependence, uncomplicated (principal) ==

== ENCOUNTER 2020-11-02 17:40 | Emergency (ER) | payer OTHER ==
[~2020-11-02] VITALS: Ht 175.3 cm; Wt 79.5 kg
[2020-11-02] MEDS ORDERED: LORazepam 2 MG/ML VIAL IV ONE (19:55)
[2020-11-02 20:48] LABS: BASO # 0.1 10^3/uL (0.0-0.2); BASO % 0.3 % (0.0-1.0); EOS # 0.1 10^3/uL (0.0-0.5); EOS % 0.6 % (0.0-3.0); HEMATOCRIT 40.6 % (36.0-47.0); HEMOGLOBIN 13.3 g/dl (12.0-15.5); LYMPH # 2.4 10^3/uL (1.5-5.0); LYMPH % 10.3 % (24.0-44.0); MEAN CORPUSCULAR HEMOGLOBIN 28.5 pg (27.0-33.0); MEAN CORPUSCULAR HGB CONC 32.8 g/dl (32.0-36.5); MEAN CORPUSCULAR VOLUME 87.1 fl (80.0-96.0); MONO # 1.1 10^3/uL (0.0-0.8); MONO % 4.8 % (2.0-8.0); NEUTROPHILS # 19.4 10^3/uL (1.5-8.5); NEUTROPHILS % 82.7 % (36.0-66.0); PLATELET COUNT, AUTOMATED 294 10^3/uL (150-450); RED BLOOD COUNT 4.66 10^6/uL (4.00-5.40); WHITE BLOOD COUNT 23.5 10^3/uL (4.0-10.0)
[2020-11-02] MEDS ORDERED: ISOVUE-370 76% 100ML VIAL As Ordered ONE (20:56)
[2020-11-02 21:07] LABS: AMPHETAMINES LEVEL URINE NEGATIVE (NEGATIVE); BARBITURATES URINE NEGATIVE (NEGATIVE); BENZODIAZEPINES URINE POSITIVE (NEGATIVE); CANNABINOIDS URINE POSITIVE (NEGATIVE); COCAINE METABOLITE URINE NEGATIVE (NEGATIVE); METHADONE URINE NEGATIVE (NEGATIVE); OPIATES URINE NEGATIVE (NEGATIVE); PHENCYCLIDINE URINE NEGATIVE (NEGATIVE)
--- NOTE | 2020-11-02 22:43 | REPVR ---
PROCEDURE INFORMATION: Exam: CT Head Without Contrast Exam date and time: 11/02/2020 9:34 PM Age: 25 years old Clinical indication: Injury or trauma; Fall; Blunt trauma (contusions or hematomas); Additional info: Fall down stairs, back pain TECHNIQUE: Imaging protocol: Computed tomography of the head without contrast. Radiation optimization: All CT scans at this facility use at least one of these dose optimization techniques: automated exposure control; mA and/or kV adjustment per patient size (includes targeted exams where dose is matched to clinical indication); or iterative reconstruction. COMPARISON: CT Maxillofacial with contrast 06/20/2014 4:50 PM FINDINGS: Brain: There is no evidence of intracranial bleed. The khoury-white differentiation appears preserved. There is no evidence of mass effect. Cerebral ventricles: Normal appearing ventricles. Paranasal sinuses: Clear paranasal sinuses. Mastoid air cells: Clear mastoid air cells. Orbital cavity: Symmetric orbits. Bones/joints: There is no evidence of fracture. Soft tissues: There is mild soft tissue swelling on the right. IMPRESSION: Normal appearing CT scan of the brain. Electronically signed by: Jose Davila On 11/02/2020 22:42:23 PM
--- NOTE | 2020-11-02 22:47 | REPVR ---
PROCEDURE INFORMATION: Exam: CT Cervical Spine Without Contrast Exam date and time: 11/02/2020 9:34 PM Age: 25 years old Clinical indication: Neck pain; Additional info: Fall down stairs, back pain TECHNIQUE: Imaging protocol: Computed tomography images of the cervical spine without contrast. Radiation optimization: All CT scans at this facility use at least one of these dose optimization techniques: automated exposure control; mA and/or kV adjustment per patient size (includes targeted exams where dose is matched to clinical indication); or iterative reconstruction. COMPARISON: CT Maxillofacial with contrast 06/20/2014 4:50 PM FINDINGS: Vertebrae: The cervical vertebra and facet joints appear in alignment. The dens appears intact and the lateral masses of C1 appear symmetric. Soft tissues: There is no evidence of soft tissue swelling. Lungs: Clear apical portions of the lung. IMPRESSION: No evidence of fracture. Electronically signed by: Jose Davila On 11/02/2020 22:46:42 PM
--- NOTE | 2020-11-02 22:48 | REPVR ---
PROCEDURE INFORMATION: Exam: CT Chest With Contrast; Diagnostic Exam date and time: 11/02/2020 9:34 PM Age: 25 years old Clinical indication: Injury or trauma; Fall; Blunt trauma (contusions or hematomas); Additional info: Fall down stairs, back pain TECHNIQUE: Imaging protocol: Diagnostic computed tomography of the chest with contrast. Radiation optimization: All CT scans at this facility use at least one of these dose optimization techniques: automated exposure control; mA and/or kV adjustment per patient size (includes targeted exams where dose is matched to clinical indication); or iterative reconstruction. Contrast material: ISOVUE 370; Contrast volume: 100 ml; Contrast route: INTRAVENOUS (IV); COMPARISON: CR Chest, 2 view PA, Lat 06/22/2014 3:31 PM FINDINGS: Lungs: Unremarkable. No consolidation. No masses. Pleural spaces: Unremarkable. No pneumothorax. No pleural effusion. Heart: Unremarkable. No cardiomegaly. No pericardial effusion. Aorta: Unremarkable. No aortic aneurysm. Lymph nodes: Unremarkable. No enlarged lymph nodes. Bones/joints: There are acute compression fractures of the T9, T10, and T11 superior endplates. Only mild anterior vertebral body height loss at T9. No retropulsed bone fragments or spinal stenosis. Soft tissues: Unremarkable. IMPRESSION: Acute compression fractures of the T9, T10, and T11 superior endplates. Normal vertebral body alignment. Electronically signed by: Serge Merritt On 11/02/2020 22:47:32 PM
--- NOTE | 2020-11-02 22:53 | REPVR ---
PROCEDURE INFORMATION: Exam: CT Abdomen And Pelvis With Contrast Exam date and time: 11/02/2020 9:34 PM Age: 25 years old Clinical indication: Injury or trauma; Fall; Blunt; Generalized; Additional info: Fall down stairs, back pain TECHNIQUE: Imaging protocol: Computed tomography of the abdomen and pelvis with contrast. Radiation optimization: All CT scans at this facility use at least one of these dose optimization techniques: automated exposure control; mA and/or kV adjustment per patient size (includes targeted exams where dose is matched to clinical indication); or iterative reconstruction. Contrast material: ISOVUE 370; Contrast volume: 100 ml; Contrast route: INTRAVENOUS (IV); COMPARISON: No relevant prior studies available. FINDINGS: Liver: Unremarkable. No mass. Gallbladder and bile ducts: Normal. No calcified stones. No ductal dilation. Pancreas: Normal. No ductal dilation. Spleen: Normal. No splenomegaly. Adrenal glands: Normal. No mass. Kidneys and ureters: Unremarkable. No calculi or hydronephrosis. Stomach and bowel: Unremarkable. No obstruction. No inflammatory changes or mucosal thickening. Appendix: No evidence of appendicitis. Intraperitoneal space: No free air. No significant fluid collection. Vasculature: Unremarkable. No abdominal aortic aneurysm. Lymph nodes: Unremarkable. No enlarged lymph nodes. Urinary bladder: Unremarkable as visualized. Reproductive: Unremarkable as visualized. Bones/joints: Compression fractures of the T9, T10, and T11 vertebral body superior endplates with minimal height loss. Normal vertebral body alignment. No spinal stenosis. Soft tissues: Unremarkable. IMPRESSION: 1. Compression fractures of the T9, T10, and T11 vertebral body superior endplates. Normal vertebral body alignment. 2. No solid organ or vascular injury. Electronically signed by: Serge Merritt On 11/02/2020 22:53:28 PM
[2020-11-03 00:22] LABS: RSV AMPLIFICATION NEGATIVE (NEGATIVE)
[2020-11-03 01:26] VITALS: BP 128/64
== END 2020-11-03 01:24 | disposition short-term general hospital (02) ==
LOC: M ED 17:40 → EDBD 17:40 → M ED 11-03 01:24
DX: S22.079A Unspecified fracture of T9-T10 vertebra, initial encounter for closed fracture (principal); S22.089A Unspecified fracture of T11-T12 vertebra, initial encounter for closed fracture; W10.8XXA Fall (on) (from) other stairs and steps, initial encounter; Y92.018 Other place in single-family (private) house as the place of occurrence of the external cause; J45.909 Unspecified asthma, uncomplicated; F41.9 Anxiety disorder, unspecified; F33.9 Major depressive disorder, recurrent, unspecified; G43.909 Migraine, unspecified, not intractable, without status migrainosus; Z79.899 Other long term (current) drug therapy; Z79.3 Long term (current) use of hormonal contraceptives; Z88.8 Allergy status to other drugs, medicaments and biological substances; F12.20 Cannabis dependence, uncomplicated
CPT/HCPCS: 70450; 71260; 72125; 74177; 80047; 80307; 82077; 84702; 85025; 87631; 93041; 96374; 99285; J2060; Q9967

== ENCOUNTER 2020-11-30 15:00 | Outpatient (RCR) | payer OTHER | END 2020-12-01 | LOC: M OUTALCOH 15:00 | PROVIDERS: ATTEND Psychiatry & Neurology Psychiatry | DX: F12.20 Cannabis dependence, uncomplicated (principal) ==

== ENCOUNTER 2020-12-31 14:00 | Outpatient (RCR) | payer OTHER | END 2021-01-01 | LOC: M OUTALCOH 14:00 | PROVIDERS: ATTEND Psychiatry & Neurology Psychiatry | DX: F12.20 Cannabis dependence, uncomplicated (principal) ==

== ENCOUNTER 2021-01-30 13:59 | Outpatient (RCR) | payer OTHER | END 2021-01-31 | LOC: M OUTALCOH 13:59 | PROVIDERS: ATTEND Psychiatry & Neurology Psychiatry | DX: F12.20 Cannabis dependence, uncomplicated (principal) ==

== ENCOUNTER 2021-02-19 10:00 | Outpatient (RCR) | payer OTHER | END 2021-03-03 | LOC: M OUTALCOH 10:00 | PROVIDERS: ATTEND Psychiatry & Neurology Psychiatry | DX: F10.20 Alcohol dependence, uncomplicated (principal) ==

== ENCOUNTER 2021-04-01 11:30 | Outpatient (RCR) | payer OTHER | END 2021-04-02 | LOC: M OUTALCOH 11:30 | PROVIDERS: ATTEND Psychiatry & Neurology Psychiatry | DX: F12.20 Cannabis dependence, uncomplicated (principal) ==

== ENCOUNTER 2021-05-01 14:58 | Outpatient (RCR) | payer OTHER | END 2021-05-03 | LOC: M OUTALCOH 14:58 | PROVIDERS: ATTEND Psychiatry & Neurology Psychiatry | DX: F12.20 Cannabis dependence, uncomplicated (principal) ==

== ENCOUNTER 2021-05-28 15:55 | Emergency (ER) | payer OTHER ==
[~2021-05-28] VITALS: Ht 177.8 cm; Wt 69.3 kg
[2021-05-28] MEDS ORDERED: PROAAER10 INH (17:40)
[2021-05-28 17:59] VITALS: BP 123/59
== END 2021-05-28 18:00 | disposition home or self-care (01) ==
LOC: M ED 15:55
DX: J45.909 Unspecified asthma, uncomplicated (principal); Z76.0 Encounter for issue of repeat prescription; Z79.899 Other long term (current) drug therapy; Z79.3 Long term (current) use of hormonal contraceptives

== ENCOUNTER 2021-06-26 14:00 | Outpatient (RCR) | payer OTHER ==
[~2021-06-26 14:00] MED LIST changes: +PROAAER10 INH
== END 2021-07-01 ==
LOC: M OUTALCOH 14:00
PROVIDERS: ATTEND Psychiatry & Neurology Psychiatry
DX: F12.20 Cannabis dependence, uncomplicated (principal)

== ENCOUNTER 2021-09-26 19:46 | Emergency (ER) | payer OTHER, SELFPAY ==
[~2021-09-26] VITALS: Ht 177.8 cm; Wt 59.1 kg
[2021-09-26] MEDS ORDERED: ONDANSETRON 4MG/2ML VIAL IV ONE (23:10)
[2021-09-26] MEDS ORDERED: NS 1,000 ML IV ONE (23:10)
[2021-09-26] MEDS ORDERED: LIDOCAINE W/EPINEPHRINE 1% 20ML VIAL SC ONE (23:10)
[2021-09-26 23:51] LABS: BASO # 0.1 10^3/uL (0.0-0.2); BASO % 0.4 % (0.0-1.0); EOS # 0.3 10^3/uL (0.0-0.5); EOS % 1.7 % (0.0-3.0); HEMATOCRIT 42.3 % (36.0-47.0); HEMOGLOBIN 13.9 g/dl (12.0-15.5); LYMPH # 3.3 10^3/uL (1.5-5.0); LYMPH % 21.4 % (24.0-44.0); MEAN CORPUSCULAR HEMOGLOBIN 29.1 pg (27.0-33.0); MEAN CORPUSCULAR HGB CONC 32.9 g/dl (32.0-36.5); MEAN CORPUSCULAR VOLUME 88.5 fl (80.0-96.0); MONO # 0.9 10^3/uL (0.0-0.8); NEUTROPHILS # 10.9 10^3/uL (1.5-8.5); NEUTROPHILS % 70.2 % (36.0-66.0); PLATELET COUNT, AUTOMATED 299 10^3/uL (150-450); RED BLOOD COUNT 4.78 10^6/uL (4.00-5.40); WHITE BLOOD COUNT 15.6 10^3/uL (4.0-10.0)
[2021-09-26] MEDS ORDERED: AUGMENTIN 875 MG TAB PO ONE (23:55)
[2021-09-27 00:08] LABS: ALBUMIN 4.6 GM/DL (3.2-5.2); BILIRUBIN,DIRECT 0.1 MG/DL (0.0-0.2); BILIRUBIN,TOTAL 0.4 MG/DL (0.2-1.0); TOTAL PROTEIN 8.2 GM/DL (6.4-8.2)
[2021-09-27] MEDS ORDERED: AMOX875T2 PO (00:08)
[2021-09-27] MEDS ORDERED: ONDA4TAB6 PO (00:08)
[2021-09-27 00:57] VITALS: BP 120/60
== END 2021-09-27 00:58 | disposition home or self-care (01) ==
LOC: M ED 19:46
DX: S61.412A Laceration without foreign body of left hand, initial encounter (principal); R00.1 Bradycardia, unspecified; W54.0XXA Bitten by dog, initial encounter; Y92.099 Unspecified place in other non-institutional residence as the place of occurrence of the external cause; Y93.9 Activity, unspecified; Y99.9 Unspecified external cause status; R07.9 Chest pain, unspecified; R11.2 Nausea with vomiting, unspecified; J45.909 Unspecified asthma, uncomplicated; K21.9 Gastro-esophageal reflux disease without esophagitis; F43.10 Post-traumatic stress disorder, unspecified; F32.9 Major depressive disorder, single episode, unspecified; Z79.3 Long term (current) use of hormonal contraceptives; Z79.899 Other long term (current) drug therapy; Z88.8 Allergy status to other drugs, medicaments and biological substances
CPT/HCPCS: 12001; 71045; 80047; 80076; 84702; 85025; 93005; 93041; 94760; 96361; 96374; 99284; J2405

== ENCOUNTER 2021-12-06 15:05 | Observation (INO) | payer OTHER ==
[~2021-12-06] VITALS: Ht 167.6 cm; Wt 67.8 kg
[~2021-12-06 15:05] MED LIST changes: +AMOX875T2 PO; +ETON68IM SC; -NEXP1IMP SC; +ONDA4TAB6 PO
[2021-12-06 15:29] LABS: BASO # 0.1 10^3/uL (0.0-0.2); BASO % 0.6 % (0.0-1.0); EOS # 0.3 10^3/uL (0.0-0.5); EOS % 2.6 % (0.0-3.0); HEMATOCRIT 39.1 % (36.0-47.0); HEMOGLOBIN 12.9 g/dl (12.0-15.5); LYMPH # 1.5 10^3/uL (1.5-5.0); LYMPH % 15.3 % (24.0-44.0); MEAN CORPUSCULAR HEMOGLOBIN 29.3 pg (27.0-33.0); MEAN CORPUSCULAR VOLUME 88.9 fl (80.0-96.0); MONO # 1.2 10^3/uL (0.0-0.8); MONO % 11.8 % (2.0-8.0); NEUTROPHILS # 6.8 10^3/uL (1.5-8.5); NEUTROPHILS % 68.6 % (36.0-66.0); PLATELET COUNT, AUTOMATED 239 10^3/uL (150-450)
[2021-12-06 16:15] LABS: ACETAMINOPHEN LEVEL < 2.0 UG/ML (10.0-30.0); ALT/SGPT 23 U/L (12-78); BILIRUBIN,DIRECT 0.1 MG/DL (0.0-0.2); BILIRUBIN,TOTAL 0.5 MG/DL (0.2-1.0); BLOOD UREA NITROGEN 12 MG/DL (7-18); CALCIUM LEVEL 9.3 MG/DL (8.5-10.1); CARBON DIOXIDE LEVEL 28 MEQ/L (21-32); CHLORIDE LEVEL 106 MEQ/L (98-107); ETHYL ALCOHOL (ETHANOL) < 0.003 % (0.000-0.010); GLOMERULAR FILTRATION RATE > 60.0 (>60); GLUCOSE, FASTING 88 MG/DL (70-100); POTASSIUM SERUM 3.9 MEQ/L (3.5-5.1); SALICYLATE LEVEL < 1.7 MG/DL (5.0-30.0); SODIUM LEVEL 137 MEQ/L (136-145); TOTAL PROTEIN 7.6 GM/DL (6.4-8.2)
[2021-12-06 16:54] LABS: AMPHETAMINES LEVEL URINE NEGATIVE (NEGATIVE); BARBITURATES URINE NEGATIVE (NEGATIVE); BENZODIAZEPINES URINE NEGATIVE (NEGATIVE); CANNABINOIDS URINE POSITIVE (NEGATIVE); COCAINE METABOLITE URINE NEGATIVE (NEGATIVE); METHADONE URINE NEGATIVE (NEGATIVE); OPIATES URINE NEGATIVE (NEGATIVE); PHENCYCLIDINE URINE NEGATIVE (NEGATIVE)
[2021-12-06 17:32] LABS: RSV AMPLIFICATION NEGATIVE (NEGATIVE)
[2021-12-06] MEDS ORDERED: ALPRAZolam 0.5 MG TAB PO ONE (18:25)
[2021-12-06] MEDS ORDERED: LORazepam 1 MG TAB PO STA (19:19)
[2021-12-06] MEDS ORDERED: HOME MED LIST COMPLETE! XX SCH (19:30)
[2021-12-06] MEDS ORDERED: OLANZapine INTRAMUSCULAR 10MG VIAL IM ONE (19:45)
[2021-12-06] MEDS ORDERED: LORazepam 2 MG/ML VIAL IV STA (20:12)
[2021-12-06] MEDS ORDERED: MIDAZOLAM 5MG/ML 1ML VIAL (J2250 PER 1MG) As Ordered ONE (20:13)
[2021-12-06] MEDS ORDERED: MIDAZOLAM INJ 2MG/2ML VIAL (J2250 PER 1MG) As Ordered ONE (20:18)
[2021-12-06] MEDS ORDERED: MIDAZOLAM INJ 2MG/2ML VIAL (J2250 PER 1MG) IV ONE ×2 (20:20→21:30)
[2021-12-07 02:30] VITALS: BP 98/66
[2021-12-07 06:15] VITALS: BP 106/68
[2021-12-07] MEDS ORDERED: ENOXAPARIN 30MG/0.3ML SYRINGE (J1650 PER 10MG) SC SCH (09:00)
[2021-12-07 14:00] VITALS: BP 111/64
[2021-12-07] MEDS ORDERED: ZOLO50TA PO (14:54)
[2021-12-07] MEDS ORDERED: HYDR-3363 PO (14:54)
[2021-12-07] MEDS ORDERED: RISP-7 PO (14:54)
[2021-12-07] MEDS ORDERED: ACETAMINOPHEN TAB 650MG DOSE (2X325MG) PO ONE (15:15)
[2021-12-07] MEDS ORDERED: SERTRALINE HCL 50 MG TAB PO SCH (16:00)
== END 2021-12-07 15:00 | disposition home or self-care (01) ==
LOC: M ED 15:05 → EDBD 15:05 → M ED INP 15:06 → M MS5PR 12-07 00:03
PROVIDERS: ADMIT Internal Medicine; ATTEND Internal Medicine
DX: G92.8 Other toxic encephalopathy (principal); F19.10 Other psychoactive substance abuse, uncomplicated; R25.8 Other abnormal involuntary movements; F32.A Depression, unspecified; T76.21XA Adult sexual abuse, suspected, initial encounter; Z91.14 Patient's other noncompliance with medication regimen; F44.4 Conversion disorder with motor symptom or deficit; F29 Unspecified psychosis not due to a substance or known physiological condition; J45.909 Unspecified asthma, uncomplicated; G43.909 Migraine, unspecified, not intractable, without status migrainosus; K80.50 Calculus of bile duct without cholangitis or cholecystitis without obstruction; Z91.51 Personal history of suicidal behavior; Z79.899 Other long term (current) drug therapy; Z88.8 Allergy status to other drugs, medicaments and biological substances; Z78.1 Physical restraint status
CPT/HCPCS: 36600; 70450; 72125; 80048; 80076; 80143; 80307; 82077; 82803; 84443; 84702; 85025; 87631; 93005; 93041; 94760; 96372; 96374; 96376; 99285; J2250

== ENCOUNTER 2022-01-05 22:53 | Inpatient (IN) | payer OTHER ==
[~2022-01-05] VITALS: Ht 180.3 cm; Wt 67.0 kg
[2022-01-05 23:31] LABS: HEMATOCRIT 42.1 % (36.0-47.0); HEMOGLOBIN 13.5 g/dl (12.0-15.5); MEAN CORPUSCULAR HEMOGLOBIN 29.1 pg (27.0-33.0); MEAN CORPUSCULAR HGB CONC 32.1 g/dl (32.0-36.5); MEAN CORPUSCULAR VOLUME 90.7 fl (80.0-96.0); PLATELET COUNT, AUTOMATED 267 10^3/uL (150-450); RED BLOOD COUNT 4.64 10^6/uL (4.00-5.40)
[2022-01-05 23:59] LABS: HCG, SERUM QUALITATIVE NEGATIVE (NEGATIVE)
[2022-01-06 00:11] LABS: AMPHETAMINES LEVEL URINE POSITIVE (NEGATIVE); BARBITURATES URINE NEGATIVE (NEGATIVE); BENZODIAZEPINES URINE NEGATIVE (NEGATIVE); CANNABINOIDS URINE POSITIVE (NEGATIVE); COCAINE METABOLITE URINE NEGATIVE (NEGATIVE); METHADONE URINE NEGATIVE (NEGATIVE); OPIATES URINE NEGATIVE (NEGATIVE); PHENCYCLIDINE URINE NEGATIVE (NEGATIVE)
[2022-01-06 00:16] LABS: ACETAMINOPHEN LEVEL < 2.0 UG/ML (10.0-30.0); ALBUMIN 4.5 GM/DL (3.2-5.2); ALT/SGPT 17 U/L (12-78); BILIRUBIN,DIRECT 0.2 MG/DL (0.0-0.2); BILIRUBIN,TOTAL 0.7 MG/DL (0.2-1.0); BLOOD UREA NITROGEN 15 MG/DL (7-18); CALCIUM LEVEL 9.7 MG/DL (8.5-10.1); CARBON DIOXIDE LEVEL 26 MEQ/L (21-32); CHLORIDE LEVEL 107 MEQ/L (98-107); CREATININE FOR GFR 0.84 MG/DL (0.55-1.30); ETHYL ALCOHOL (ETHANOL) < 0.003 % (0.000-0.010); GLOMERULAR FILTRATION RATE > 60.0 (>60); GLUCOSE, FASTING 81 MG/DL (70-100); POTASSIUM SERUM 3.6 MEQ/L (3.5-5.1); SALICYLATE LEVEL < 1.7 MG/DL (5.0-30.0); SODIUM LEVEL 141 MEQ/L (136-145); TOTAL PROTEIN 8.2 GM/DL (6.4-8.2)
[2022-01-06 00:19] LABS: RSV AMPLIFICATION NEGATIVE (NEGATIVE)
[2022-01-06] MEDS ORDERED: risperiDONE 0.5 MG TAB PO ONE (00:50)
[2022-01-06] MEDS ORDERED: LORazepam 2 MG TAB PO ONE (06:30)
[2022-01-06] MEDS ORDERED: SERT50TA29 PO (09:19)
[2022-01-06] MEDS ORDERED: COMMENTS (09:19)
[2022-01-06] MEDS ORDERED: HYDR-3363 PO (09:19)
[2022-01-06] MEDS ORDERED: RISP-7 PO (09:19)
[2022-01-06] MEDS ORDERED: HOME MED LIST COMPLETE! XX SCH (09:20)
[2022-01-06] MEDS: SERTRALINE HCL 50 MG TAB PO SCH (17:55)
[2022-01-06] MEDS: risperiDONE 0.5 MG TAB PO SCH (21:11)
[2022-01-07] MEDS: SERTRALINE HCL 50 MG TAB PO SCH (09:00)
[2022-01-07] MEDS ORDERED: IBUPROFEN 600MG TAB PO ONE (13:10)
[2022-01-07] MEDS: risperiDONE 0.5 MG TAB PO SCH (21:27)
[2022-01-07] MEDS ORDERED: OLANZapine 10 MG TAB PO ONE (23:05)
[2022-01-08] MEDS: SERTRALINE HCL 50 MG TAB PO SCH (08:17)
[2022-01-08] MEDS: risperiDONE 0.5 MG TAB PO SCH (21:00)
[2022-01-09] MEDS ORDERED: OLANZapine ORAL DISINTEGRATING TAB 5MG PO PRN (15:55)
[2022-01-09] MEDS ORDERED: ACETAMINOPHEN TAB 650MG DOSE (2X325MG) PO PRN (15:55)
[2022-01-09] MEDS ORDERED: MOM 30ML SUSPENSION UDC PO PRN (15:55)
[2022-01-09] MEDS ORDERED: MAALOX 30 ML SUSP *UDC PO PRN (15:55)
[2022-01-09] MEDS: NICOTINE 21MG/24HR 1 EA TRANSDERMAL TD SCH (17:41)
[2022-01-09] MEDS: risperiDONE 0.5 MG TAB PO SCH (20:27)
[2022-01-09] MEDS ORDERED: SERTRALINE 100 MG TAB PO ONE (21:15)
[2022-01-10 06:18] VITALS: BP 124/62
[2022-01-10] MEDS ORDERED: SERTRALINE HCL 50 MG TAB PO SCH (09:00)
[2022-01-10] MEDS: DOCUSATE SODIUM 100MG CAPSULE PO SCH ×2 (09:00→21:00)
[2022-01-10] MEDS: NICOTINE 21MG/24HR 1 EA TRANSDERMAL TD SCH ×2 (10:19→10:22)
[2022-01-10 17:00] VITALS: BP 134/85
[2022-01-10] MEDS: risperiDONE 0.5 MG TAB PO SCH (21:23)
[2022-01-11 06:41] VITALS: BP 121/79
[2022-01-11] MEDS: NICOTINE 21MG/24HR 1 EA TRANSDERMAL TD SCH (10:10)
[2022-01-11] MEDS: DOCUSATE SODIUM 100MG CAPSULE PO SCH ×2 (10:10→20:20)
[2022-01-11 18:16] VITALS: BP 133/70
[2022-01-11] MEDS: traZODone 50 MG TAB PO PRN (20:19)
[2022-01-11] MEDS: SERTRALINE HCL 50 MG TAB PO SCH (20:19)
[2022-01-11] MEDS: risperiDONE 0.5 MG TAB PO SCH (20:19)
[2022-01-12 06:26] VITALS: BP 128/71
[2022-01-12] MEDS: DOCUSATE SODIUM 100MG CAPSULE PO SCH ×2 (09:00→20:22)
[2022-01-12] MEDS: NICOTINE 21MG/24HR 1 EA TRANSDERMAL TD SCH ×2 (09:00→20:23)
[2022-01-12 17:42] VITALS: BP 132/75
[2022-01-12] MEDS: risperiDONE 0.5 MG TAB PO SCH (20:22)
[2022-01-12] MEDS: traZODone 50 MG TAB PO PRN (20:22)
[2022-01-12] MEDS: SERTRALINE HCL 50 MG TAB PO SCH (20:22)
[2022-01-13 08:05] VITALS: BP 137/85
[2022-01-13] MEDS ORDERED: SERT50TA29 PO (08:57)
[2022-01-13] MEDS ORDERED: HYDR-3363 PO (08:57)
[2022-01-13] MEDS ORDERED: RISP-7 PO (08:57)
[2022-01-13] MEDS: DOCUSATE SODIUM 100MG CAPSULE PO SCH (09:00)
== END 2022-01-13 11:40 | disposition home or self-care (01) | DRG 754 ==
LOC: M ED 22:53 → M ED INP 01-09 15:55 → EEVIPCON 01-09 15:55 → M PSY 01-09 16:50
PROVIDERS: ADMIT Psychiatry & Neurology Psychiatry; ATTEND Psychiatry & Neurology Psychiatry
DX: F32.A Depression, unspecified (principal); F60.3 Borderline personality disorder; F41.9 Anxiety disorder, unspecified; F43.10 Post-traumatic stress disorder, unspecified; R45.851 Suicidal ideations; Z91.51 Personal history of suicidal behavior; Z63.0 Problems in relationship with spouse or partner; Z20.822 Contact with and (suspected) exposure to COVID-19; Z79.899 Other long term (current) drug therapy; Z88.8 Allergy status to other drugs, medicaments and biological substances; J45.909 Unspecified asthma, uncomplicated; Z81.8 Family history of other mental and behavioral disorders

== ENCOUNTER 2022-06-12 19:46 | Inpatient (IN) | payer MEDICAID, OTHER ==
[~2022-06-12 19:46] MED LIST changes: +COMMENTS; +SERT50TA29 PO
[2022-06-12 21:19] LABS: HEMATOCRIT 42.5 % (36.0-47.0); HEMOGLOBIN 13.7 g/dl (12.0-15.5); MEAN CORPUSCULAR HGB CONC 32.2 g/dl (32.0-36.5); MEAN CORPUSCULAR VOLUME 89.9 fl (80.0-96.0); PLATELET COUNT, AUTOMATED 299 10^3/uL (150-450); RED BLOOD COUNT 4.73 10^6/uL (4.00-5.40); WHITE BLOOD COUNT 19.3 10^3/uL (4.0-10.0)
[2022-06-12 21:35] LABS: AMPHETAMINES LEVEL URINE NEGATIVE (NEGATIVE); BARBITURATES URINE NEGATIVE (NEGATIVE); BENZODIAZEPINES URINE NEGATIVE (NEGATIVE); COCAINE METABOLITE URINE NEGATIVE (NEGATIVE); ETHYL ALCOHOL (ETHANOL) 0.004 % (0.000-0.010); PHENCYCLIDINE URINE NEGATIVE (NEGATIVE)
[2022-06-12 21:36] LABS: METHADONE URINE NEGATIVE (NEGATIVE); OPIATES URINE NEGATIVE (NEGATIVE)
[2022-06-12 21:37] LABS: ACETAMINOPHEN LEVEL < 2.0 UG/ML (10.0-20.0); SALICYLATE LEVEL < 3.0 MG/DL (<30)
[2022-06-12 21:38] LABS: ALBUMIN 4.6 G/DL (3.2-5.2); ALKALINE PHOSPHATASE 75 U/L (46-116); ALT/SGPT 16 U/L (7.0-40); AST/SGOT 20 U/L (<34); BILIRUBIN,DIRECT < 0.1 MG/DL (<0.4); BILIRUBIN,TOTAL 0.3 MG/DL (0.3-1.2); BLOOD UREA NITROGEN 11 MG/DL (9-23); CALCIUM LEVEL 9.8 MG/DL (8.5-10.1); CARBON DIOXIDE LEVEL 24 MMOL/L (20-31); CHLORIDE LEVEL 105 MMOL/L (98-107); GLOMERULAR FILTRATION RATE > 60.0 (>60); GLUCOSE, FASTING 80 MG/DL (60-100); POTASSIUM SERUM 4.1 MMOL/L (3.5-5.1); SODIUM LEVEL 137 MMOL/L (136-145); TOTAL PROTEIN 7.9 G/DL (5.7-8.2)
[2022-06-12 21:41] LABS: THYROID STIMULATING HORMONE 2.332 uIU/ML (0.55-4.78)
[2022-06-12 21:44] LABS: CANNABINOIDS URINE POSITIVE (NEGATIVE)
[2022-06-12 22:04] LABS: HCG, SERUM QUALITATIVE NEGATIVE (NEGATIVE)
[2022-06-12] MEDS ORDERED: ACETAMINOPHEN TAB 650MG DOSE (2X325MG) PO ONE (22:35)
[2022-06-12] MEDS ORDERED: risperiDONE 0.5 MG TAB PO ONE (22:35)
[2022-06-12] MEDS ORDERED: ALPRAZolam 0.5 MG TAB PO ONE (23:35)
[2022-06-13] MEDS ORDERED: ALPRAZolam 0.5 MG TAB PO ONE (10:10)
[2022-06-13] MEDS ORDERED: RISP-7 PO (10:44)
[2022-06-13] MEDS ORDERED: HOME MED LIST COMPLETE! XX SCH (10:45)
[2022-06-13] MEDS ORDERED: MAALOX 30 ML SUSP *UDC PO PRN (16:05)
[2022-06-13] MEDS ORDERED: MOM 30ML SUSPENSION UDC PO PRN (16:05)
[2022-06-13 18:18] VITALS: BP 119/63
[2022-06-13] MEDS: risperiDONE 0.5 MG TAB PO PRN (20:12)
[2022-06-13] MEDS: traZODone 50 MG TAB PO PRN (20:12)
[2022-06-14 06:38] VITALS: BP 131/60
[2022-06-14 08:45] LABS: HEMATOCRIT 42.5 % (36.0-47.0); HEMOGLOBIN 13.7 g/dl (12.0-15.5); MEAN CORPUSCULAR HGB CONC 32.2 g/dl (32.0-36.5); MEAN CORPUSCULAR VOLUME 89.9 fl (80.0-96.0); PLATELET COUNT, AUTOMATED 288 10^3/uL (150-450); RED BLOOD COUNT 4.73 10^6/uL (4.00-5.40)
[2022-06-14] MEDS: ESCITALOPRAM OXALATE 10 MG TAB (LEXAPRO) PO SCH (08:53)
[2022-06-14 18:30] VITALS: BP 138/81
[2022-06-14] MEDS: risperiDONE 0.5 MG TAB PO PRN (20:32)
[2022-06-14] MEDS: traZODone 50 MG TAB PO PRN (20:32)
[2022-06-15 06:06] VITALS: BP 127/61
[2022-06-15 06:38] VITALS: BP 107/59
[2022-06-15] MEDS: ESCITALOPRAM OXALATE 10 MG TAB (LEXAPRO) PO SCH (09:58)
[2022-06-15 11:12] LABS: HEMATOCRIT 38.8 % (36.0-47.0); HEMOGLOBIN 12.6 g/dl (12.0-15.5); MEAN CORPUSCULAR HEMOGLOBIN 29.2 pg (27.0-33.0); MEAN CORPUSCULAR HGB CONC 32.5 g/dl (32.0-36.5); MEAN CORPUSCULAR VOLUME 89.8 fl (80.0-96.0); PLATELET COUNT, AUTOMATED 283 10^3/uL (150-450); RED BLOOD COUNT 4.32 10^6/uL (4.00-5.40); WHITE BLOOD COUNT 11.2 10^3/uL (4.0-10.0)
[2022-06-15] MEDS ORDERED: ISOVUE-370 76% 100ML VIAL As Ordered ONE (11:45)
[2022-06-15 11:53] LABS: APPEARANCE, URINE MANUAL CLEAR (CLEAR); COLOR, URINE MANUAL YELLOW (YELLOW)
[2022-06-15 11:54] LABS: PH,URINE MAN 8.5 UNITS (5.0 - 7.0)
[2022-06-15 11:55] LABS: BILIRUBIN, URINE MANUAL NEGATIVE (NEGATIVE); BLOOD URINE MANUAL NEGATIVE (NEGATIVE); GLUCOSE, URINE (UA) MANUAL NEGATIVE (NEGATIVE); KETONE, URINE MANUAL NEGATIVE (NEGATIVE); LEUKOCYTE ESTERASE, URINE MAN NEGATIVE (NEGATIVE); NITRITE, URINE MANUAL NEGATIVE (NEGATIVE); PROTEIN, URINE MANUAL NEGATIVE (NEGATIVE); UROBILINOGEN, URINE MANUAL NORMAL (NORMAL)
[2022-06-15 16:21] VITALS: BP 129/70
[2022-06-15] MEDS: traZODone 50 MG TAB PO PRN (20:06)
[2022-06-15] MEDS: ACETAMINOPHEN TAB 650MG DOSE (2X325MG) PO PRN (20:07)
[2022-06-15] MEDS: risperiDONE 0.5 MG TAB PO PRN (20:07)
[2022-06-16 06:27] VITALS: BP 117/64
[2022-06-16] MEDS: ESCITALOPRAM OXALATE 10 MG TAB (LEXAPRO) PO SCH (08:24)
[2022-06-16 17:00] VITALS: BP 146/82
[2022-06-16] MEDS: risperiDONE 0.5 MG TAB PO PRN (20:13)
[2022-06-16] MEDS: traZODone 50 MG TAB PO PRN (20:13)
[2022-06-16] MEDS: ACETAMINOPHEN TAB 650MG DOSE (2X325MG) PO PRN (20:14)
[2022-06-17 06:47] VITALS: BP 121/75
[2022-06-17] MEDS: ESCITALOPRAM OXALATE 10 MG TAB (LEXAPRO) PO SCH (08:28)
[2022-06-17] MEDS ORDERED: RISP-7 PO (09:44)
[2022-06-17] MEDS ORDERED: HYDR-3363 PO (09:44)
[2022-06-17] MEDS ORDERED: TRAZ-252 PO (09:44)
[2022-06-17] MEDS ORDERED: LEXA1TAB PO (09:44)
== END 2022-06-17 14:23 | disposition home or self-care (01) | DRG 756 ==
LOC: EDBD 19:46 → EDSEX 19:46 → M ED 19:46 → M ED INP 06-13 16:03 → M PSY 06-13 17:58
PROVIDERS: ADMIT Student in an Organized Health Care Education/Training Program; ATTEND Student in an Organized Health Care Education/Training Program
DX: F41.8 Other specified anxiety disorders (principal); R56.9 Unspecified convulsions; R45.851 Suicidal ideations; F32.89 Other specified depressive episodes; F43.10 Post-traumatic stress disorder, unspecified; F15.90 Other stimulant use, unspecified, uncomplicated; F12.90 Cannabis use, unspecified, uncomplicated; Z91.411 Personal history of adult psychological abuse; J45.909 Unspecified asthma, uncomplicated; Z20.822 Contact with and (suspected) exposure to COVID-19; Z79.899 Other long term (current) drug therapy; Z83.3 Family history of diabetes mellitus; Z81.1 Family history of alcohol abuse and dependence; Z88.8 Allergy status to other drugs, medicaments and biological substances; M54.50 Low back pain, unspecified; Z91.52 Personal history of nonsuicidal self-harm; Z63.0 Problems in relationship with spouse or partner

== ENCOUNTER 2022-10-20 14:45 | Inpatient (IN) | payer MEDICAID ==
[~2022-10-20] VITALS: Ht 177.8 cm; Wt 67.3 kg
[~2022-10-20 14:45] MED LIST changes: +BENZ0.5T2 PO; -BENZ0.5T23 PO; +LEXA1TAB PO; +TRAZ-252 PO
[2022-10-20] MEDS ORDERED: BOOSTRIX VACCINE (TETANUS/DIPHTH/ACEL. PERTUSSIS) 0.5ML SYR IM.IMMUN ONE (15:40)
[2022-10-20] MEDS ORDERED: LORazepam 2 MG TAB PO ONE (16:00)
[2022-10-20] MEDS ORDERED: OLANZapine ORAL DISINTEGRATING TAB 5MG PO ONE (16:05)
[2022-10-20 16:14] LABS: HEMATOCRIT 41.7 % (36.0-47.0); HEMOGLOBIN 13.6 g/dl (12.0-15.5); MEAN CORPUSCULAR HEMOGLOBIN 29.1 pg (27.0-33.0); MEAN CORPUSCULAR HGB CONC 32.6 g/dl (32.0-36.5); MEAN CORPUSCULAR VOLUME 89.1 fl (80.0-96.0); PLATELET COUNT, AUTOMATED 313 10^3/uL (150-450); RED BLOOD COUNT 4.68 10^6/uL (4.00-5.40); WHITE BLOOD COUNT 14.1 10^3/uL (4.0-10.0)
[2022-10-20 16:40] LABS: AMPHETAMINES LEVEL URINE NEGATIVE (NEGATIVE); BARBITURATES URINE NEGATIVE (NEGATIVE); BENZODIAZEPINES URINE NEGATIVE (NEGATIVE); COCAINE METABOLITE URINE NEGATIVE (NEGATIVE); METHADONE URINE NEGATIVE (NEGATIVE); OPIATES URINE NEGATIVE (NEGATIVE); PHENCYCLIDINE URINE NEGATIVE (NEGATIVE)
[2022-10-20 16:42] LABS: ETHYL ALCOHOL (ETHANOL) < 0.003 % (0.000-0.010)
[2022-10-20 16:43] LABS: ACETAMINOPHEN LEVEL < 2.0 UG/ML (10.0-20.0); SALICYLATE LEVEL < 3.0 MG/DL (<30)
[2022-10-20 16:44] LABS: ALBUMIN 4.9 G/DL (3.2-5.2); ALKALINE PHOSPHATASE 70 U/L (46-116); ALT/SGPT 19 U/L (7.0-40); AST/SGOT 12 U/L (<34); BILIRUBIN,DIRECT 0.2 MG/DL (<0.4); BILIRUBIN,TOTAL 0.6 MG/DL (0.3-1.2); BLOOD UREA NITROGEN 9 MG/DL (9-23); CALCIUM LEVEL 10.5 MG/DL (8.5-10.1); CARBON DIOXIDE LEVEL 26 MMOL/L (20-31); CHLORIDE LEVEL 106 MMOL/L (98-107); CREATININE FOR GFR 0.95 MG/DL (0.55-1.30); GLOMERULAR FILTRATION RATE > 60.0 (>60); GLUCOSE, FASTING 88 MG/DL (60-100); POTASSIUM SERUM 4.2 MMOL/L (3.5-5.1); SODIUM LEVEL 140 MMOL/L (136-145); TOTAL PROTEIN 8.1 G/DL (5.7-8.2)
[2022-10-20 16:47] LABS: THYROID STIMULATING HORMONE 2.221 uIU/ML (0.55-4.78)
[2022-10-20] MEDS ORDERED: ACETAMINOPHEN TAB 650MG DOSE (2X325MG) PO ONE (16:55)
[2022-10-20 17:10] LABS: HCG, SERUM QUALITATIVE NEGATIVE (NEGATIVE)
[2022-10-20 17:41] LABS: CANNABINOIDS URINE POSITIVE (NEGATIVE)
[2022-10-21] MEDS ORDERED: MED REC IN PROGRESS XX SCH (07:15)
[2022-10-21] MEDS ORDERED: MELA5TAB47 PO (07:59)
[2022-10-21] MEDS ORDERED: RISP-7 PO (07:59)
[2022-10-21] MEDS ORDERED: BENA25CA4 PO (07:59)
[2022-10-21] MEDS ORDERED: HYDR-4570 PO (07:59)
[2022-10-21] MEDS ORDERED: HOME MED LIST COMPLETE! XX SCH (08:00)
[2022-10-21] MEDS ORDERED: diphenhydrAMINE 50MG CAP PO PRN (08:10)
[2022-10-21] MEDS ORDERED: ACETAMINOPHEN TAB 650MG DOSE (2X325MG) PO ONE (09:35)
[2022-10-21] MEDS ORDERED: MAALOX 30 ML SUSP *UDC PO PRN (15:25)
[2022-10-21] MEDS ORDERED: ACETAMINOPHEN TAB 650MG DOSE (2X325MG) PO PRN (15:25)
[2022-10-21] MEDS: IBUPROFEN 400MG TAB PO PRN ×2 (16:17→22:21)
[2022-10-21] MEDS ORDERED: risperiDONE 0.5 MG TAB PO SCH ×2 (21:00)
[2022-10-21] MEDS: traZODone 50 MG TAB PO PRN (22:20)
[2022-10-22 06:55] VITALS: BP 116/56; TEMP 97.4; O2SAT 100
[2022-10-22] MEDS ORDERED: NICOTINE 14 MG/24 HR TRANSDERMAL TD SCH (09:00)
[2022-10-22] MEDS: IBUPROFEN 400MG TAB PO PRN ×2 (09:22→21:12)
[2022-10-22] MEDS ORDERED: ALBUTEROL 90 MCG/ACT 8GM HFA INHALER INH PRN (10:20)
[2022-10-22 11:38] LABS: HEMATOCRIT 36.1 % (36.0-47.0); HEMOGLOBIN 11.7 g/dl (12.0-15.5); MEAN CORPUSCULAR HGB CONC 32.4 g/dl (32.0-36.5); MEAN CORPUSCULAR VOLUME 89.6 fl (80.0-96.0); PLATELET COUNT, AUTOMATED 259 10^3/uL (150-450); RED BLOOD COUNT 4.03 10^6/uL (4.00-5.40)
[2022-10-22] MEDS: MOM 30ML SUSPENSION UDC PO PRN (12:02)
[2022-10-22 16:51] VITALS: BP 110/72; TEMP 98.9; O2SAT 100
[2022-10-22 21:30] VITALS: BP 139/90; O2SAT 100
[2022-10-22 22:03] VITALS: BP 139/90; O2SAT 100
[2022-10-23] MEDS ORDERED: risperiDONE 0.5 MG TAB PO ONE (01:20)
[2022-10-23] MEDS ORDERED: LORazepam 1 MG TAB PO PRN (01:20)
[2022-10-23 06:17] VITALS: BP 140/65; TEMP 98.6; O2SAT 100
[2022-10-23 07:09] LABS: CHOLESTEROL RISK RATIO 3.23 (<5); HDL CHOLESTEROL 42.3 MG/DL (>40); LDL CHOLESTEROL 76.5 MG/DL (<100); NON-HDL-C 94.7 MG/DL
[2022-10-23] MEDS: risperiDONE 2 MG TAB PO SCH ×2 (11:38→20:45)
[2022-10-23 18:58] VITALS: BP 125/80; TEMP 98.4
[2022-10-23] MEDS: traZODone 50 MG TAB PO PRN (20:45)
[2022-10-24 06:14] VITALS: BP 138/80; TEMP 98.5; O2SAT 100
[2022-10-24] MEDS: risperiDONE 2 MG TAB PO SCH ×2 (10:53→20:24)
[2022-10-24] MEDS: MOM 30ML SUSPENSION UDC PO PRN (12:23)
[2022-10-24] MEDS ORDERED: PALIPERIDONE PAL 234MG/1.5ML INJ (INVEGA)(FREE PSY INPT ONLY) IM SCH (15:00)
[2022-10-24 18:00] VITALS: BP 127/73; TEMP 96
[2022-10-24] MEDS: IBUPROFEN 400MG TAB PO PRN (19:35)
[2022-10-24] MEDS: traZODone 50 MG TAB PO PRN (20:24)
[2022-10-25 07:12] VITALS: BP 123/58; TEMP 98; O2SAT 100
[2022-10-25] MEDS: risperiDONE 2 MG TAB PO SCH ×2 (08:48→20:58)
[2022-10-25 17:06] VITALS: BP 132/60; TEMP 98.4; O2SAT 100
[2022-10-25] MEDS: MOM 30ML SUSPENSION UDC PO PRN (17:12)
[2022-10-25] MEDS: traZODone 50 MG TAB PO PRN (20:58)
[2022-10-26 07:03] VITALS: BP 133/69; TEMP 98.6; O2SAT 98
[2022-10-26] MEDS: risperiDONE 2 MG TAB PO SCH ×2 (08:21→20:49)
[2022-10-26] MEDS: IBUPROFEN 400MG TAB PO PRN (08:22)
[2022-10-26 17:05] VITALS: BP 132/61; TEMP 98.3; O2SAT 100
[2022-10-26] MEDS: traZODone 50 MG TAB PO PRN (20:49)
[2022-10-27 06:48] VITALS: BP 113/59; TEMP 98.1; O2SAT 99
[2022-10-27] MEDS: risperiDONE 2 MG TAB PO SCH (08:55)
[2022-10-27] MEDS ORDERED: RISP-9 PO (10:56)
[2022-10-27] MEDS ORDERED: INVE234I IM (10:56)
[2022-10-27] MEDS ORDERED: TRAZ-252 PO (10:56)
[2022-10-27] MEDS ORDERED: PALIPERIDONE PAL 156MG/1ML INJ(INVEGA)(FREE PSY INPT ONLY) IM ONE (13:00)
== END 2022-10-27 14:30 | disposition home or self-care (01) | DRG 753 ==
LOC: EDBD 14:45 → M ED 14:45 → M ED INP 10-21 15:23 → M PSY 10-21 17:17
PROVIDERS: ADMIT Student in an Organized Health Care Education/Training Program; ATTEND Student in an Organized Health Care Education/Training Program
DX: F31.60 Bipolar disorder, current episode mixed, unspecified (principal); F15.10 Other stimulant abuse, uncomplicated; F60.3 Borderline personality disorder; F43.10 Post-traumatic stress disorder, unspecified; F19.14 Other psychoactive substance abuse with psychoactive substance-induced mood disorder; F12.10 Cannabis abuse, uncomplicated; Z81.1 Family history of alcohol abuse and dependence; Z81.8 Family history of other mental and behavioral disorders; Z63.5 Disruption of family by separation and divorce; Z56.0 Unemployment, unspecified; Z79.899 Other long term (current) drug therapy; Z88.8 Allergy status to other drugs, medicaments and biological substances

== ENCOUNTER 2023-05-19 22:08 | Emergency (ER) | payer MEDICAID, SELFPAY ==
[~2023-05-19] VITALS: Ht 177.8 cm; Wt 81.4 kg
[~2023-05-19 22:08] MED LIST changes: +BENA25CA4 PO; +HYDR-4570 PO; +INVE234I IM; +MELA5TAB47 PO; +RISP-9 PO
[2023-05-19 22:43] LABS: HEMATOCRIT 40.9 % (36.0-47.0); HEMOGLOBIN 13.8 g/dl (12.0-15.5); MEAN CORPUSCULAR HEMOGLOBIN 30.3 pg (27.0-33.0); MEAN CORPUSCULAR HGB CONC 33.7 g/dl (32.0-36.5); MEAN CORPUSCULAR VOLUME 89.7 fl (80.0-96.0); PLATELET COUNT, AUTOMATED 278 10^3/uL (150-450); RED BLOOD COUNT 4.56 10^6/uL (4.00-5.40); WHITE BLOOD COUNT 16.7 10^3/uL (4.0-10.0)
[2023-05-19] MEDS ORDERED: VITA100093 PO (23:22)
[2023-05-19] MEDS ORDERED: MULTCHW12 PO (23:22)
[2023-05-19] MEDS ORDERED: CALC500C16 PO (23:24)
[2023-05-19] MEDS ORDERED: HOME MED LIST COMPLETE! XX SCH (23:30)
[2023-05-19 23:31] LABS: BARBITURATES URINE NEGATIVE (NEGATIVE); BENZODIAZEPINES URINE NEGATIVE (NEGATIVE); COCAINE METABOLITE URINE NEGATIVE (NEGATIVE); METHADONE URINE NEGATIVE (NEGATIVE); OPIATES URINE NEGATIVE (NEGATIVE); PHENCYCLIDINE URINE NEGATIVE (NEGATIVE)
[2023-05-19 23:34] LABS: ETHYL ALCOHOL (ETHANOL) < 0.003 % (0.000-0.010)
[2023-05-19 23:35] LABS: ALBUMIN 4.4 G/DL (3.2-5.2); ALKALINE PHOSPHATASE 65 U/L (46-116); ALT/SGPT 46 U/L (7.0-40); AST/SGOT 36 U/L (<34); BILIRUBIN,DIRECT 0.3 MG/DL (<0.4); BILIRUBIN,TOTAL 0.9 MG/DL (0.3-1.2); BLOOD UREA NITROGEN 12 MG/DL (9-23); CALCIUM LEVEL 9.7 MG/DL (8.5-10.1); CARBON DIOXIDE LEVEL 25 MMOL/L (20-31); CHLORIDE LEVEL 106 MMOL/L (98-107); CREATININE FOR GFR 0.69 MG/DL (0.55-1.30); GLOMERULAR FILTRATION RATE > 60.0 (>60); GLUCOSE, FASTING 83 MG/DL (60-100); POTASSIUM SERUM 3.3 MMOL/L (3.5-5.1); SALICYLATE LEVEL < 3.0 MG/DL (<30); SODIUM LEVEL 139 MMOL/L (136-145); TOTAL PROTEIN 7.4 G/DL (5.7-8.2)
[2023-05-19 23:37] LABS: THYROID STIMULATING HORMONE 0.327 uIU/ML (0.55-4.78)
[2023-05-19 23:41] LABS: AMPHETAMINES LEVEL URINE POSITIVE (NEGATIVE); CANNABINOIDS URINE POSITIVE (NEGATIVE)
[2023-05-20] MEDS ORDERED: POTASSIUM CHLORIDE 10% LIQ 20MEQ/15ML UDC PO ONE (01:25)
[2023-05-20 02:16] LABS: APPEARANCE, URINE HAZY (CLEAR); BACTERIA, URINE AUTO NEGATIVE (NEGATIVE); BILIRUBIN, URINE AUTO NEGATIVE (NEGATIVE); BLOOD, URINE BLOOD NEGATIVE (NEGATIVE); COLOR, URINE YELLOW (YELLOW); GLUCOSE, URINE (UA) AUTO NEGATIVE (NEGATIVE); KETONE, URINE AUTO 1+ mg/dL (NEGATIVE); LEUKOCYTE ESTERASE, URINE AUTO NEGATIVE (NEGATIVE); MUCUS, URINE MODERATE (NEGATIVE); NITRITE, URINE AUTO NEGATIVE (NEGATIVE); PROTEIN, URINE AUTO 1+ mg/dL (NEGATIVE); RBC, URINE AUTO 0 /HPF (0-3); SPECIFIC GRAVITY URINE AUTO 1.025 (1.002-1.035); SQUAMOUS EPITHELIAL CELL UR AU 9 /HPF (0-6); WBC, URINE AUTO 3 /HPF (0-3)
[2023-05-20] MEDS ORDERED: ACETAMINOPHEN TAB 650MG DOSE (2X325MG) PO ONE (03:00)
[2023-05-20 09:00] LABS: HCG, SERUM QUALITATIVE NEGATIVE (NEGATIVE)
[2023-05-20 11:50] VITALS: BP 112/62; TEMP 97.9; O2SAT 100
== END 2023-05-20 11:51 | disposition home or self-care (01) ==
LOC: M ED 22:08
DX: F39 Unspecified mood [affective] disorder (principal); I51.9 Heart disease, unspecified; F32.A Depression, unspecified; F90.9 Attention-deficit hyperactivity disorder, unspecified type; F41.9 Anxiety disorder, unspecified; Z91.51 Personal history of suicidal behavior; F19.10 Other psychoactive substance abuse, uncomplicated; Z81.1 Family history of alcohol abuse and dependence; Z81.8 Family history of other mental and behavioral disorders

== ENCOUNTER → 2024-02-03 | Outpatient (CLI) | payer OTHER ==
[~2024-02-03] MED LIST changes: +CALC500C16 PO; +MULTCHW12 PO; +ONDA-282 PO; -ONDA4TAB6 PO; +RISP-106 PO; -RISP-7 PO; -RISP-9 PO; +RISP0.5T82 PO; +VITA100093 PO
== END ==
LOC: M OUTALCOH 09:02
PROVIDERS: ATTEND Psychiatry & Neurology Psychiatry
DX: F16.20 Hallucinogen dependence, uncomplicated (principal); F15.20 Other stimulant dependence, uncomplicated

== ENCOUNTER 2024-02-20 03:07 | Emergency (ER) | payer OTHER ==
[~2024-02-20] VITALS: Ht 177.8 cm; Wt 64.5 kg
[2024-02-20 07:36] LABS: HEMATOCRIT 33.4 % (36.0-47.0); HEMOGLOBIN 11.1 g/dl (12.0-15.5); MEAN CORPUSCULAR HEMOGLOBIN 30.1 pg (27.0-33.0); MEAN CORPUSCULAR HGB CONC 33.2 g/dl (32.0-36.5); MEAN CORPUSCULAR VOLUME 90.5 fl (80.0-96.0); PLATELET COUNT, AUTOMATED 290 10^3/uL (150-450); RED BLOOD COUNT 3.69 10^6/uL (4.00-5.40); WHITE BLOOD COUNT 13.6 10^3/uL (4.0-10.0)
[2024-02-20 08:00] LABS: ETHYL ALCOHOL (ETHANOL) < 0.003 % (0.000-0.010)
[2024-02-20 08:01] LABS: HCG, SERUM QUALITATIVE NEGATIVE (NEGATIVE); SALICYLATE LEVEL < 3.0 MG/DL (<30)
[2024-02-20 08:02] LABS: ALBUMIN 3.6 G/DL (3.2-5.2); ALKALINE PHOSPHATASE 63 U/L (46-116); ALT/SGPT 20 U/L (7.0-40); AST/SGOT 17 U/L (<34); BILIRUBIN,DIRECT < 0.1 MG/DL (<0.4); BILIRUBIN,TOTAL 0.3 MG/DL (0.3-1.2); BLOOD UREA NITROGEN 10 MG/DL (9-23); CALCIUM LEVEL 9.7 MG/DL (8.5-10.1); CARBON DIOXIDE LEVEL 28 MMOL/L (20-31); CHLORIDE LEVEL 106 MMOL/L (98-107); CREATININE FOR GFR 0.62 MG/DL (0.55-1.30); GLOMERULAR FILTRATION RATE > 60.0 (>60); GLUCOSE, FASTING 90 MG/DL (60-100); SODIUM LEVEL 137 MMOL/L (136-145); TOTAL PROTEIN 6.6 G/DL (5.7-8.2)
[2024-02-20 08:04] LABS: THYROID STIMULATING HORMONE 2.688 uIU/ML (0.55-4.78)
[2024-02-20 08:13] LABS: BARBITURATES URINE NEGATIVE (NEGATIVE); BENZODIAZEPINES URINE NEGATIVE (NEGATIVE); COCAINE METABOLITE URINE NEGATIVE (NEGATIVE); METHADONE URINE NEGATIVE (NEGATIVE); OPIATES URINE NEGATIVE (NEGATIVE); PHENCYCLIDINE URINE NEGATIVE (NEGATIVE)
[2024-02-20 08:14] LABS: AMPHETAMINES LEVEL URINE POSITIVE (NEGATIVE); CANNABINOIDS URINE POSITIVE (NEGATIVE)
[2024-02-20 13:49] VITALS: BP 114/57; TEMP 98.8; O2SAT 99
== END 2024-02-20 13:51 | disposition home or self-care (01) ==
LOC: M ED 03:07
DX: F22 Delusional disorders (principal); J45.909 Unspecified asthma, uncomplicated; G43.909 Migraine, unspecified, not intractable, without status migrainosus; F17.210 Nicotine dependence, cigarettes, uncomplicated; F19.10 Other psychoactive substance abuse, uncomplicated; Z88.8 Allergy status to other drugs, medicaments and biological substances

== ENCOUNTER → 2024-11-08 | Outpatient (CLI) | payer MEDICAID, OTHER ==
[~2024-11-08] MED LIST changes: +ACYC-438 PO; -ACYC1TAB PO; +HYDR-3364 PO; -HYDR-4570 PO; +NYST1POW3 TOP; -NYST1POW9 TOP
== END ==
LOC: M WHC 07:47
PROVIDERS: ATTEND Physician Assistant Medical
DX: N63.13 Unspecified lump in the right breast, lower outer quadrant (principal)

== ENCOUNTER 2025-02-08 22:31 | Emergency (ER) | payer OTHER ==
[~2025-02-08] VITALS: Ht 180.3 cm; Wt 63.6 kg
[2025-02-08 22:36] VITALS: BP 138/71; TEMP 98.1; O2SAT 100
[2025-02-08] MEDS ORDERED: IPRATROPIUM 0.5 MG/ALBUTEROL 2.5 MG INH SOL UD 3 ML NEB ONE (23:50)
[2025-02-09 00:28] LABS: BASO # 0.1 10^3/uL (0.0-0.2); BASO % 0.5 % (0.0-1.0); EOS # 0.3 10^3/uL (0.0-0.5); EOS % 2.2 % (0.0-3.0); LYMPH # 2.3 10^3/uL (1.5-5.0); LYMPH % 15.4 % (24.0-44.0); MONO # 1.3 10^3/uL (0.0-0.8); MONO % 8.4 % (2.0-8.0); NEUTROPHILS # 11.0 10^3/uL (1.5-8.5); NEUTROPHILS % 72.6 % (36.0-66.0); PLATELET COUNT, AUTOMATED 317 10^3/uL (150-450)
[2025-02-09 00:38] LABS: CK-MB VALUE MASS 10.1 NG/ML (<3.6)
[2025-02-09 00:51] LABS: ALT/SGPT 22 U/L (7.0-40); AST/SGOT 24 U/L (<34); CALCIUM LEVEL 9.4 MG/DL (8.5-10.1); CARBON DIOXIDE LEVEL 25 MMOL/L (20-31); CHLORIDE LEVEL 102 MMOL/L (98-107); CPK CREATINE PHOSPHOKINASE 417 U/L (34-145); CREATININE FOR GFR 0.68 MG/DL (0.55-1.30); GLOMERULAR FILTRATION RATE > 90.0 (>60); MB/CK RELATIVE INDEX 2.44 (< OR =4); POTASSIUM SERUM 3.5 MMOL/L (3.5-5.1); SODIUM LEVEL 139 MMOL/L (136-145)
== END 2025-02-09 02:52 | disposition home or self-care (01) ==
LOC: M ED 22:31
DX: R94.6 Abnormal results of thyroid function studies (principal); J45.901 Unspecified asthma with (acute) exacerbation; R01.1 Cardiac murmur, unspecified; I45.10 Unspecified right bundle-branch block; K21.9 Gastro-esophageal reflux disease without esophagitis; G40.909 Epilepsy, unspecified, not intractable, without status epilepticus; F12.10 Cannabis abuse, uncomplicated; Z88.8 Allergy status to other drugs, medicaments and biological substances